=== PATIENT | female | born 1960 | race Caucasian/White ===

== ENCOUNTER 2020-07-19 08:34 | Outpatient (REF) | payer BC, SELFPAY ==
[2020-07-19 11:30] LABS: Estimated Average Glucose 180 mg/dL; Hemoglobin A1c % 7.9 %
[2020-07-19 11:59] LABS: Alanine Aminotransferase 32 U/L (0-31); Albumin Level 4.4 g/dL (3.5-5.0); Alkaline Phosphatase 78 U/L (39-117); Anion Gap 13 (12-20); Aspartate Amino Transferase 22 U/L (5-31); Bilirubin Total 0.9 mg/dL (0.0-1.0); Blood Urea Nitrogen 16 mg/dL (9-16); Carbon Dioxide 26 mmol/L (22-29); Chloride 103 mmol/L (96-108); Estimated Glomerular Filt Rate > 60; Glucose Random 173 mg/dL (60-115); Potassium 4.2 mmol/l (3.3-5.1); Sodium 138 mmol/L (135-145); Total Protein 6.7 g/dL (6.5-8.0)
[2020-07-19 12:30] LABS: Microalbumin Urine < 5.0 mg/L
== END 2020-07-19 08:35 | disposition home or self-care (01) ==
LOC: HO.HMGCLDS 08:34
PROVIDERS: PCP Internal Medicine; Visit Provider Internal Medicine
DX: E11.9 Type 2 diabetes mellitus without complications (principal); I10 Essential (primary) hypertension
CPT/HCPCS: 36415; 80053; 82043; 83036

== ENCOUNTER 2020-11-08 08:14 | Outpatient (REF) | payer BC, SELFPAY ==
[2020-11-08 11:32] LABS: MANUAL DIFF FLAG NO
[2020-11-08 11:48] LABS: Basophils Percent Auto 0.6 % (0-2); Eosinophils Absolute Auto 0.1 X10*3/uL (0.0-0.4); Eosinophils Percent Auto 2.7 % (0-4); Hematocrit 39.4 % (37-47); Hemoglobin 12.7 g/dl (12.0-16.0); Imm Gran Abs Auto 0.01 X10*3/uL (0.00-0.03); Imm Gran Pct Auto 0.2 % (0.0-0.4); Lymphocytes Absolute Auto 1.2 X10*3/uL (1.2-4.9); Lymphocytes Percent Auto 24.9 % (20-40); Mean Corpuscular HGB Conc 32.2 g/dl (31.0-35.0); Mean Corpuscular Hemoglobin 29.2 pg (27.0-33.0); Mean Corpuscular Volume 90.6 fL (80-98); Mean Platelet Volume 10.6 fL (9.4-12.3); Monocytes Absolute Auto 0.5 X10*3/uL (0.1-1.2); Monocytes Percent Auto 9.4 % (2-11); Neutrophils Percent Auto 62.2 % (45-73); Platelet Count 207 X10*3/uL (160-400); Red Blood Count 4.35 X10*6/uL (4.20-5.50); Red Cell Distribution Width 12.5 % (11.0-16.0); White Blood Count 4.8 X10*3/uL (4.8-10.8)
[2020-11-08 11:59] LABS: Glucose Urine UA NEG (NEG); Leukocyte Esterase Urine NEG (NEG); Nitrite Urine NEG (NEG); PH 5.5 (5.0-8.0); Specific Gravity - Urine 1.025 (1.005-1.025); Urine Blood NEG (NEG); Urine Ketones NEG (NEG); Urine Protein NEG (NEG-TRACE)
[2020-11-08 12:00] LABS: Estimated Average Glucose 154 mg/dL
[2020-11-08 12:07] LABS: Appearance Urine CLOUDY; Color Urine YELLOW
[2020-11-08 12:14] LABS: Alanine Aminotransferase 28 U/L (0-31); Albumin Level 4.2 g/dL (3.5-5.0); Alkaline Phosphatase 82 U/L (39-117); Anion Gap 11 (12-20); Aspartate Amino Transferase 18 U/L (5-31); Bilirubin Total 0.4 mg/dL (0.0-1.0); Blood Urea Nitrogen 16 mg/dL (9-16); Calcium 9.1 mg/dL (8.4-10.2); Carbon Dioxide 27 mmol/L (22-29); Chloride 108 mmol/L (96-108); Cholesterol 155 mg/dL; Estimated Glomerular Filt Rate > 60; Glucose Fasting 155 mg/dL (60-99); HDL Cholesterol 29 mg/dL; Potassium 3.9 mmol/L (3.3-5.1); Sodium 142 mmol/L (135-145); Total Protein 6.5 g/dL (6.5-8.0); Triglycerides 475 mg/dL
[2020-11-08 12:16] LABS: Creatinine Urine 141.96 mg/dL; Microalbum/Creatinine Ratio Ur 20.4 ug/mg cr
[2020-11-08 12:34] LABS: Vitamin D 25-OH Total 33.4 ng/mL (>30)
== END 2020-11-08 08:15 | disposition home or self-care (01) ==
LOC: HO.HMGCLDS 08:14
PROVIDERS: PCP Internal Medicine; Visit Provider Internal Medicine
DX: E11.9 Type 2 diabetes mellitus without complications (principal); E78.00 Pure hypercholesterolemia, unspecified; I10 Essential (primary) hypertension; E55.9 Vitamin D deficiency, unspecified
CPT/HCPCS: 36415; 80053; 80061; 81003; 82043; 82306; 83036; 85025

== ENCOUNTER 2021-02-08 08:26 | Outpatient (REF) | payer BC, SELFPAY ==
[2021-02-08 11:52] LABS: Estimated Average Glucose 171 mg/dL; Hemoglobin A1c % 7.6 %
[2021-02-08 12:08] LABS: Alanine Aminotransferase 26 U/L (0-31); Albumin Level 4.2 g/dL (3.5-5.0); Alkaline Phosphatase 64 U/L (39-117); Anion Gap 11 (12-20); Aspartate Amino Transferase 17 U/L (5-31); Bilirubin Total 0.5 mg/dL (0.0-1.0); Blood Urea Nitrogen 17 mg/dL (9-16); Calcium 9.3 mg/dL (8.4-10.2); Carbon Dioxide 28 mmol/L (22-29); Chloride 105 mmol/L (96-108); Cholesterol 151 mg/dL; Estimated Glomerular Filt Rate > 60; Glucose Fasting 171 mg/dL (60-99); HDL Cholesterol 34 mg/dL; LDL Cholesterol Calculated 88 mg/dl; Potassium 4.4 mmol/L (3.3-5.1); Sodium 140 mmol/L (135-145); Total Protein 6.4 g/dL (6.5-8.0); Triglycerides 148 mg/dL
== END 2021-02-08 08:27 | disposition home or self-care (01) ==
LOC: HO.HMGCLDS 08:26
PROVIDERS: PCP Internal Medicine; Visit Provider Internal Medicine
DX: E78.5 Hyperlipidemia, unspecified (principal); E11.9 Type 2 diabetes mellitus without complications
CPT/HCPCS: 36415; 80053; 80061; 83036

== ENCOUNTER 2021-06-04 08:00 | Outpatient (REF) | payer BC, SELFPAY ==
[2021-06-04 11:30] LABS: MANUAL DIFF FLAG NO
[2021-06-04 11:37] LABS: Basophils Percent Auto 0.6 % (0-2); Eosinophils Absolute Auto 0.2 X10*3/uL (0.0-0.4); Eosinophils Percent Auto 2.9 % (0-4); Hematocrit 38.3 % (37.0-47.0); Hemoglobin 12.3 g/dl (12.0-16.0); Imm Gran Abs Auto 0.02 X10*3/uL (0.00-0.03); Imm Gran Pct Auto 0.4 % (0.0-0.4); Lymphocytes Absolute Auto 1.3 X10*3/uL (1.2-4.9); Lymphocytes Percent Auto 26.3 % (20-40); Mean Corpuscular HGB Conc 32.1 g/dl (31.0-35.0); Mean Corpuscular Hemoglobin 28.5 pg (27.0-33.0); Mean Corpuscular Volume 88.9 fL (80.0-98.0); Mean Platelet Volume 10.6 fL (9.4-12.3); Monocytes Absolute Auto 0.5 X10*3/uL (0.1-1.2); Monocytes Percent Auto 9.2 % (2-11); Neutrophils Absolute Auto 3.1 x10*3/uL (2.0-8.3); Neutrophils Percent Auto 60.6 % (45-73); Platelet Count 234 X10*3/uL (160-400); Red Blood Count 4.31 X10*6/uL (4.20-5.50); Red Cell Distribution Width 12.2 % (11.0-16.0); White Blood Count 5.1 X10*3/uL (4.8-10.8)
[2021-06-04 12:03] LABS: Alanine Aminotransferase 24 U/L (0-31); Albumin Level 4.1 g/dL (3.5-5.0); Alkaline Phosphatase 68 U/L (39-117); Anion Gap 12 (12-20); Aspartate Amino Transferase 16 U/L (5-31); Bilirubin Total 0.4 mg/dL (0.0-1.0); Blood Urea Nitrogen 14 mg/dL (9-16); Carbon Dioxide 27 mmol/L (22-29); Chloride 105 mmol/L (96-108); Estimated Glomerular Filt Rate > 60; Glucose Random 160 mg/dL (60-115); Iron 54 mcg/dL (30-160); Percent Iron Saturation 15 % (15-50); Potassium 4.1 mmol/L (3.3-5.1); Sodium 140 mmol/L (135-145); Total Iron Binding Capacity 370 mcg/dL (228-428); Total Protein 6.4 g/dL (6.5-8.0); Unsaturated Iron Binding 316 ug/dL
[2021-06-04 12:11] LABS: Estimated Average Glucose 197 mg/dL; Hemoglobin A1c % 8.5 %
[2021-06-04 12:23] LABS: Microalbum/Creatinine Ratio Ur 9.9 ug/mg cr
== END 2021-06-04 08:01 | disposition home or self-care (01) ==
LOC: HO.HMGCLDS 08:00
PROVIDERS: PCP Internal Medicine; Visit Provider Internal Medicine
DX: E11.9 Type 2 diabetes mellitus without complications (principal); K21.9 Gastro-esophageal reflux disease without esophagitis; I10 Essential (primary) hypertension
CPT/HCPCS: 36415; 80053; 82043; 83036; 83540; 85025

== ENCOUNTER 2021-06-27 15:50 | Outpatient (REF) | payer BC, SELFPAY ==
[2021-06-27 16:08] LABS: COVID-19 Test Negative (Negative)
== END 2021-06-27 15:51 | disposition home or self-care (01) ==
LOC: HO.LNP 15:50
PROVIDERS: Visit Provider Internal Medicine
DX: Z20.822 Contact with and (suspected) exposure to COVID-19 (principal)
CPT/HCPCS: 87635

== ENCOUNTER 2021-07-02 14:01 | Outpatient (REF) | payer BC, SELFPAY ==
[2021-07-02 15:04] LABS: COVID-19 Test Negative (Negative)
== END 2021-07-02 14:02 | disposition home or self-care (01) ==
LOC: HO.LNP 14:01
PROVIDERS: Visit Provider Internal Medicine
DX: Z20.822 Contact with and (suspected) exposure to COVID-19 (principal)
CPT/HCPCS: 87635

== ENCOUNTER 2021-08-09 10:19 | Emergency (ER) | payer BC, SELFPAY ==
--- NOTE | ~2021-08-09 | CT_ITS ---
EXAMINATION: CT ABDOMEN AND PELVIS WITH CONTRAST CLINICAL INFORMATION: Left lower quadrant pain. History of diverticulitis. COMPARISON: 03/19/2012 TECHNIQUE: Multidetector volumetric images were obtained from the superior aspect of the liver through the pubic symphysis following administration 85 mL of Omnipaque 350 intravenous contrast. Sagittal and coronal reformatted images were obtained on the technologist's workstation. Oral contrast: No This CT examination was performed using dose optimization techniques as appropriate, variously including the following: *Automated exposure control *Adjustment of mA and/or kV according to patient size (this includes techniques or standardized protocols for targeted exams where dose is matched to indication/reason for exam; i.e. extremities or head) *Use of iterative reconstruction technique DLP: 855 mGy-cm FINDINGS: LUNG BASES: Minimal left basilar atelectasis. The visualized cardiac structures are unremarkable. LIVER, GALLBLADDER, AND BILIARY TREE: The liver is normal in size, shape, and attenuation. No biliary ductal dilatation is present. Within segment 3 of the liver there is a 0.8 cm hypoattenuating lesion which is too small to fully characterize. The gallbladder is unremarkable with no evidence of radiopaque gallstones, gallbladder wall thickening, or obvious pericholecystic inflammatory changes. PANCREAS: Unremarkable. SPLEEN: Unremarkable. ADRENAL GLANDS: Unremarkable. KIDNEYS AND URETERS: The kidneys are normal in size, shape, and attenuation. No hydronephrosis, hydroureter, or calculi seen. No perinephric stranding. BLADDER: Unremarkable. GASTROINTESTINAL TRACT: The stomach is unremarkable. Normal caliber small bowel. No obstruction. There is diffuse colonic diverticulosis. Focal wall thickening with inflammation of the fat at the proximal sigmoid colon, consistent with diverticulitis. No free air or fluid collection. Normal appendix. ABDOMINAL WALL: No significant hernia is appreciated. LYMPH NODES: Normal. VASCULAR: Normal caliber aorta with mild atherosclerotic calcification. PELVIC VISCERA: The uterus and adnexa are unremarkable. OSSEOUS STRUCTURES: No acute or suspicious osseous abnormality. CT/CT abdomen pelvis w con IMPRESSION: Sigmoid diverticulitis. No free air or fluid collection. Fleischner guidelines were followed.
[2021-08-09 10:30] VITALS: BP 151/69; PULSE 100; RESP 18; TEMP 36; O2SAT 96; BMI 32.5
--- NOTE | 2021-08-09 11:32 | ED.ABDPAIN ---
HPI - Abdominal Pain General Chief Complaint: Abdominal Pain Stated Complaint: ABD PAIN Time Seen by Provider: 08/09/21 11:22 Source: patient Mode of arrival: ambulatory Limitations: no limitations History of Present Illness HPI narrative: Patient comes to the emergency room complaining of left lower quadrant pain. Patient states it started yesterday. Patient has history of diverticulitis, states it feels about same. Patient denies vomiting, complaining of nausea, complaining of intermittent diarrhea and constipation. No rectal pain. No rectal bleeding. Patient denies fever chills. Patient states that she has noticed some discomfort urinating, seems more pressure than dysuria. Patient denies flank pain, no fever chills Related Data Previous Rx's Medication Instructions Recorded levofloxacin 500 mg tablet 500 mg PO DAILY #1 tab 08/09/21 levofloxacin 500 mg tablet 500 mg PO DAILY #9 tab 08/09/21 metronidazole 250 mg tablet 250 mg PO BID #19 tab 08/09/21 metronidazole 250 mg tablet 250 mg PO ONCE #1 tab 08/09/21 tramadol 50 mg tablet 50 mg PO BID PRN #7 tab 08/09/21 Allergies Allergy/AdvReac Type Severity Reaction Status Date / Time No Known Allergies Allergy Verified 08/09/21 10:33 Review of Systems Review of Systems Constitutional : No Weight loss, No Fever, No Chills, No Night Sweats, No Fatigue, No Malaise ENT/Mouth : No Hearing loss, No Ear Pain, No Nasal Congestion, No Sinus Pain, No Hoarseness, No sore throat, No Rhinorrhea, No Swallowing Difficulty Eyes: No Eye Pain, No Swelling, No Redness, No Foreign Body, No Discharge, No Vision Changes Cardiovascular : No Chest Pain, No SOB, No Dyspnea on Exertion, No Orthopnea, No Edema, No Palpitations Respiratory : No Cough, No Sputum, No Wheezing, No Smoke Exposure, No Dyspnea Gastrointestinal : Complaining of nausea, no vomiting, complaining intermittent diarrhea and constipation, complaining of left lower quadrant pain, No Hematochezia, No Melena Genitourinary : no irregular bleeding, complaining of bladder pressure/no dysuria, No Urinary Frequency, No Hematuria, No Urinary Incontinence, No Urgency, No Flank Pain, No Urinary Flow Changes, No Hesitancy Musculoskeletal : No joint pain, No Myalgias, No Joint Swelling Skin : No Skin Lesions, No rash Neuro : No Weakness, No Numbness, No Paresthesias, No Loss of Consciousness, No Dizziness, No Headache Psych : No Anxiety/Panic, No Depression, No SI/HI/AH/VH, No Social Issues, Heme/Lymph: No Bruising, No Bleeding,No Lymphadenopathy Endocrine : No Polyuria, No Polydipsia, No Temperature Intolerance [facility] Past Medical History Medical History Diabetes Diverticulitis HTN (hypertension) Social History Social History Advance Directives: Yes Advance Directives Information Provided: Yes Advance Directives on File: No Physical Exam ED Vital Signs: Vital Signs - 24 hr 08/09/21 10:30 08/09/21 14:40 Temperature 96.8 F 97.7 F Pulse Rate 100 70 Respiratory Rate 18 15 Blood Pressure 151/69 H 132/67 Pulse Oximetry 96 97 BMI result Body Mass Index 32.5 Const Other: Appearance: Alert. Oriented X3. No acute distress. Eyes: Pupils equal, round and reactive to light. ENT: Pharynx normal. Neck: Normal inspection. Neck supple. No lymph nodes noted. No crepitus CVS: Normal heart rate and rhythm. Pulses normal. Normal S1 and S2 Respiratory: No respiratory distress. Breath sounds normal. No Wheezing. No rales Abdomen: Soft , pain to palpation in bilateral lower quadrants, more so on the left lower quadrant Skin: Skin warm and dry. Normal skin color. Normal skin turgor. Extremities: No lower extremity edema. No Lacerations. No Rash Neuro: Oriented X 3. No motor deficit. No sensory deficit. Moving all extermities. No slurred speech. Course Course Course Narrative: Patient receiving IV fluids and pain medication labs and CT scan pending. Sepsis is not suspected. Patient overall feeling better. I discussed with the patient that she has diverticulitis. Patient received Levaquin and metronidazole. Discussed with the patient having her stay in the hospital versus going home. Patient states that she feels well enough to go home. Patient given clear instructions when to return to the emergency room. MDM - Abdominal Pain Lab Data Result diagrams: 08/09/21 11:37 08/09/21 12:15 Labs: Lab Results 08/09/21 08/09/21 08/09/21 Range/Units 11:37 11:37 11:37 WBC 8.0 (4.8-10.8) X10*3/uL RBC 4.37 (4.20-5.50) X10*6/uL Hgb 12.5 (12.0-16.0) g/dl Hct 38.2 (37.0-47.0) % MCV 87.4 (80.0-98.0) fL MCH 28.6 (27.0-33.0) pg MCHC 32.7 (31.0-35.0) g/dl RDW 12.4 (11.0-16.0) % Plt Count 211 (160-400) X10*3/uL MPV 10.7 (9.4-12.3) fL Immature Gran % (Auto) 0.3 (0.0-0.4) % Neut % (Auto) 68.6 (45-73) % Lymph % (Auto) 21.2 (20-40) % [place] % (Auto) 7.8 (2-11) % Eos % (Auto) 1.5 (0-4) % Baso % (Auto) 0.6 (0-2) % Lymph # (Auto) 1.7 (1.2-4.9) X10*3/uL [place] # (Auto) 0.6 (0.1-1.2) X10*3/uL Eos # (Auto) 0.1 (0.0-0.4) X10*3/uL Baso # (Auto) 0.1 (0.0-0.2) X10*3/uL Abs Immat Gran (auto) 0.02 (0.00-0.03) X10*3/uL Absolute Neuts (auto) 5.5 (2.0-8.3) x10*3/uL Absolute Nucleated RBC 0.000 (0.0-0.012) X10*3/uL Nucleated RBC % (auto) 0.0 (0.0-0.2) /100WBC Sodium (135-145) mmol/L Potassium (3.3-5.1) mmol/L Chloride (96-108) mmol/L Carbon Dioxide (22-29) mmol/L Anion Gap (12-20) BUN (9-16) mg/dL Creatinine (0.5-1.4) mg/dL Estim Creat Clear Calc Estimated GFR Random Glucose (60-115) mg/dL Lactic Acid 1.0 (0.5-2.0) mmol/L Calcium (8.4-10.2) mg/dL Total Bilirubin (0.0-1.0) mg/dL Direct Bilirubin (0.0-0.5) mg/dL AST (5-31) U/L ALT (0-31) U/L Alkaline Phosphatase (39-117) U/L Total Protein (6.5-8.0) g/dL Albumin (3.5-5.0) g/dL Lipase (8-78) U/L Urine Color YELLOW Urine Appearance CLEAR Urine pH 6.0 (5.0-8.0) Ur Specific [place] 1.010 (1.005-1.025) Urine Protein NEG (NEG-TRACE) MG/DL Urine Glucose (UA) >=1000 H (NEG) MG/DL Urine Ketones NEG (NEG) MG/DL Urine Blood NEG (NEG) Urine Nitrite NEG (NEG) Ur Leukocyte Esterase NEG (NEG) Urine RBC 0-2 (0) /HPF Urine WBC 1-4 (0-4) /HPF Ur Squamous Epith Cells 2+ /LPF Urine Bacteria NONE /LPF 08/09/21 Range/Units 12:15 WBC (4.8-10.8) X10*3/uL RBC (4.20-5.50) X10*6/uL Hgb (12.0-16.0) g/dl Hct (37.0-47.0) % MCV (80.0-98.0) fL MCH (27.0-33.0) pg MCHC (31.0-35.0) g/dl RDW (11.0-16.0) % Plt Count (160-400) X10*3/uL MPV (9.4-12.3) fL Immature Gran % (Auto) (0.0-0.4) % Neut % (Auto) (45-73) % Lymph % (Auto) (20-40) % [place] % (Auto) (2-11) % Eos % (Auto) (0-4) % Baso % (Auto) (0-2) % Lymph # (Auto) (1.2-4.9) X10*3/uL [place] # (Auto) (0.1-1.2) X10*3/uL Eos # (Auto) (0.0-0.4) X10*3/uL Baso # (Auto) (0.0-0.2) X10*3/uL Abs Immat Gran (auto) (0.00-0.03) X10*3/uL Absolute Neuts (auto) (2.0-8.3) x10*3/uL Absolute Nucleated RBC (0.0-0.012) X10*3/uL Nucleated RBC % (auto) (0.0-0.2) /100WBC Sodium 138 (135-145) mmol/L Potassium 4.0 (3.3-5.1) mmol/L Chloride 107 (96-108) mmol/L Carbon Dioxide 25 (22-29) mmol/L Anion Gap 10 L (12-20) BUN 10 (9-16) mg/dL Creatinine 0.66 (0.5-1.4) mg/dL Estim Creat Clear Calc 92.7 Estimated GFR > 60 Random Glucose 183 H (60-115) mg/dL Lactic Acid (0.5-2.0) mmol/L Calcium 8.6 (8.4-10.2) mg/dL Total Bilirubin 0.6 (0.0-1.0) mg/dL Direct Bilirubin 0.2 (0.0-0.5) mg/dL AST 12 (5-31) U/L ALT 17 (0-31) U/L Alkaline Phosphatase 64 (39-117) U/L Total Protein 5.9 L (6.5-8.0) g/dL Albumin 3.7 (3.5-5.0) g/dL Lipase 15 (8-78) U/L Urine Color Urine Appearance Urine pH (5.0-8.0) Ur Specific [place] (1.005-1.025) Urine Protein (NEG-TRACE) MG/DL Urine Glucose (UA) (NEG) MG/DL Urine Ketones (NEG) MG/DL Urine Blood (NEG) Urine Nitrite (NEG) Ur Leukocyte Esterase (NEG) Urine RBC (0) /HPF Urine WBC (0-4) /HPF Ur Squamous Epith Cells /LPF Urine Bacteria /LPF Imaging Data CT scan - abdomen: Radiologist's impression: FINDINGS: LUNG BASES: Minimal left basilar atelectasis. The visualized cardiac structures are unremarkable.? LIVER, GALLBLADDER, AND BILIARY TREE: The liver is normal in size, shape, and attenuation. No biliary ductal dilatation is present. Within segment 3 of the liver there is a 0.8 cm hypoattenuating lesion which is too small to fully characterize. The gallbladder is unremarkable with no evidence of radiopaque gallstones, gallbladder wall thickening, or obvious pericholecystic inflammatory changes.? PANCREAS: Unremarkable.? SPLEEN: Unremarkable.? ADRENAL GLANDS: Unremarkable.? KIDNEYS AND URETERS: The kidneys are normal in size, shape, and attenuation. No hydronephrosis, hydroureter, or calculi seen. No perinephric stranding. ? BLADDER: Unremarkable.? GASTROINTESTINAL TRACT: The stomach is unremarkable. Normal caliber small bowel. No obstruction. There is diffuse colonic diverticulosis. Focal wall thickening with inflammation of the fat at the proximal sigmoid colon, consistent with diverticulitis. No free air or fluid collection. Normal appendix.? ABDOMINAL WALL: No significant hernia is appreciated.? LYMPH NODES: Normal. VASCULAR: Normal caliber aorta with mild atherosclerotic calcification. PELVIC VISCERA: The uterus and adnexa are unremarkable.? OSSEOUS STRUCTURES: No acute or suspicious osseous abnormality.? CT/CT abdomen pelvis w con IMPRESSION: Sigmoid diverticulitis. No free air or fluid collection.? Discharge Plan Discharge Clinical Impression: Diverticulitis Patient Disposition: Home, Self-Care Instructions: Diverticulitis (ED), Diverticulitis Diet (ED) Additional Instructions: If you have any worsening symptoms, or if the symptoms are not improving, please return to emergency room. Please follow-up with your primary care physician tomorrow. If you have any worsening or new symptoms, please return to the emergency room or call 911 Prescriptions: New levofloxacin 500 mg tablet 500 mg PO DAILY Qty: 9 0RF Rx Instructions: Start 08/10/2021 metronidazole 250 mg tablet 250 mg PO BID Qty: 0RF Rx Instructions: Started 08/10/2021 tramadol 50 mg tablet 50 mg PO BID PRN (Reason: pain) Qty: 7 0RF levofloxacin 500 mg tablet 500 mg PO DAILY Qty: 1 0RF Rx Instructions: to be taken today metronidazole 250 mg tablet 250 mg PO ONCE Qty: 1 0RF Rx Instructions: to be taken today Interventions: ED Discharge Assessment Last Done: 08/09/21 14:45 Discharge Date/Time: 08/09/21 14:45
[2021-08-09 11:55] LABS: MANUAL DIFF FLAG NO
[2021-08-09] MEDS: ondansetron HCL 4 MG/2 ML VIAL IVPUSH (11:55)
[2021-08-09] MEDS: Morphine Sulfate 4 MG/ML CARTRIDGE IVPUSH (11:56)
[2021-08-09 11:57] LABS: Basophils Absolute Auto 0.1 X10*3/uL (0.0-0.2); Basophils Percent Auto 0.6 % (0-2); Eosinophils Absolute Auto 0.1 X10*3/uL (0.0-0.4); Eosinophils Percent Auto 1.5 % (0-4); Hematocrit 38.2 % (37.0-47.0); Hemoglobin 12.5 g/dl (12.0-16.0); Imm Gran Abs Auto 0.02 X10*3/uL (0.00-0.03); Imm Gran Pct Auto 0.3 % (0.0-0.4); Lymphocytes Absolute Auto 1.7 X10*3/uL (1.2-4.9); Lymphocytes Percent Auto 21.2 % (20-40); Mean Corpuscular HGB Conc 32.7 g/dl (31.0-35.0); Mean Corpuscular Hemoglobin 28.6 pg (27.0-33.0); Mean Corpuscular Volume 87.4 fL (80.0-98.0); Mean Platelet Volume 10.7 fL (9.4-12.3); Monocytes Absolute Auto 0.6 X10*3/uL (0.1-1.2); Monocytes Percent Auto 7.8 % (2-11); Neutrophils Absolute Auto 5.5 x10*3/uL (2.0-8.3); Neutrophils Percent Auto 68.6 % (45-73); Platelet Count 211 X10*3/uL (160-400); Red Blood Count 4.37 X10*6/uL (4.20-5.50); Red Cell Distribution Width 12.4 % (11.0-16.0)
[2021-08-09 11:58] LABS: Appearance Urine CLEAR; Color Urine YELLOW; Glucose Urine UA >=1000 MG/DL (NEG); Leukocyte Esterase Urine NEG (NEG); Nitrite Urine NEG (NEG); Urine Blood NEG (NEG); Urine Ketones NEG (NEG); Urine Protein NEG (NEG-TRACE)
[2021-08-09] MEDS: 0.9 % Sodium Chloride 1,000 ML 999 ML IVCONT (11:58)
[2021-08-09 12:28] LABS: RBC Urine 0-2 /HPF (0); Squamous Epithelial Cell Urine 2+ /LPF
[2021-08-09 12:49] LABS: Alanine Aminotransferase 17 U/L (0-31); Albumin Level 3.7 g/dL (3.5-5.0); Alkaline Phosphatase 64 U/L (39-117); Anion Gap 10 (12-20); Aspartate Amino Transferase 12 U/L (5-31); Bilirubin Direct 0.2 mg/dL (0.0-0.5); Bilirubin Total 0.6 mg/dL (0.0-1.0); Blood Urea Nitrogen 10 mg/dL (9-16); Calcium 8.6 mg/dL (8.4-10.2); Carbon Dioxide 25 mmol/L (22-29); Chloride 107 mmol/L (96-108); Creatinine Clr Calc Pharmacy 92.7; Estimated Glomerular Filt Rate > 60; Glucose Random 183 mg/dL (60-115); Lipase 15 U/L (8-78); Sodium 138 mmol/L (135-145); Total Protein 5.9 g/dL (6.5-8.0)
[2021-08-09] MEDS: iohexoL 350 MG/ML 100 ML INFUS..BTL IV (13:14)
[2021-08-09 14:40] VITALS: BP 132/67; PULSE 70; RESP 15; TEMP 36.5; O2SAT 97
== END 2021-08-09 14:45 | disposition home or self-care (01) ==
PROVIDERS: Emergency Provider Emergency Medicine; PCP Internal Medicine
DX: K57.32 Diverticulitis of large intestine without perforation or abscess without bleeding (principal); E11.9 Type 2 diabetes mellitus without complications; I10 Essential (primary) hypertension
CPT/HCPCS: 36415; 74177; 80048; 80076; 81001; 81003; 83605; 83690; 85025; 87040; 96361; 96374; 96375; 99283; 99284; J2270; J2405; Q9967

== ENCOUNTER 2021-09-17 07:00 | Outpatient (REF) | payer BC, SELFPAY ==
[2021-09-17 12:04] LABS: Alanine Aminotransferase 27 U/L (0-31); Albumin Level 4.3 g/dL (3.5-5.0); Alkaline Phosphatase 63 U/L (39-117); Anion Gap 13 (12-20); Aspartate Amino Transferase 21 U/L (5-31); Bilirubin Total 0.7 mg/dL (0.0-1.0); Blood Urea Nitrogen 15 mg/dL (9-16); Calcium 9.4 mg/dL (8.4-10.2); Carbon Dioxide 27 mmol/L (22-29); Chloride 103 mmol/L (96-108); Estimated Glomerular Filt Rate > 60; Glucose Random 164 mg/dL (60-115); Sodium 139 mmol/L (135-145); Total Protein 6.8 g/dL (6.5-8.0)
[2021-09-17 12:13] LABS: Estimated Average Glucose 189 mg/dL; Hemoglobin A1c % 8.2 %
[2021-09-17 12:19] LABS: Creatinine Urine 145.39 mg/dL; Microalbum/Creatinine Ratio Ur 8.9 ug/mg cr
== END 2021-09-17 07:01 | disposition home or self-care (01) ==
LOC: HO.HMGCLDS 07:00
PROVIDERS: Visit Provider Internal Medicine
DX: I10 Essential (primary) hypertension (principal); E11.9 Type 2 diabetes mellitus without complications
CPT/HCPCS: 36415; 80053; 82043; 83036

== ENCOUNTER 2021-11-04 13:36 | Outpatient (REF) | payer BC, SELFPAY ==
[2021-11-04 15:19] LABS: Anion Gap 13 (12-20); Blood Urea Nitrogen 12 mg/dL (9-16); C Reactive Protein 1.96 mg/dL (< or = 0.50); Calcium 9.8 mg/dL (8.4-10.2); Carbon Dioxide 30 mmol/L (22-29); Chloride 102 mmol/L (96-108); Estimated Glomerular Filt Rate > 60; Glucose Random 158 mg/dL (60-115); Potassium 4.2 mmol/L (3.3-5.1); Sodium 141 mmol/L (135-145)
[2021-11-04 15:24] LABS: Amylase 110 U/L (28-100)
[2021-11-08 12:30] LABS: Lyme Abs Screen <0.90 index
== END 2021-11-04 13:37 | disposition home or self-care (01) ==
LOC: HO.LAB 13:36
PROVIDERS: PCP Internal Medicine; Visit Provider Internal Medicine
DX: I10 Essential (primary) hypertension (principal); E11.9 Type 2 diabetes mellitus without complications; R59.9 Enlarged lymph nodes, unspecified
CPT/HCPCS: 36415; 80048; 82150; 86140; 86617; 86618

== ENCOUNTER 2021-11-05 14:12 | Outpatient (REF) | payer BC, SELFPAY ==
[2021-11-05 16:30] LABS: MANUAL DIFF FLAG NO
[2021-11-05 16:42] LABS: Basophils Percent Auto 0.4 % (0-2); Eosinophils Absolute Auto 0.1 X10*3/uL (0.0-0.4); Eosinophils Percent Auto 1.8 % (0-4); Hematocrit 39.6 % (37.0-47.0); Hemoglobin 13.2 g/dl (12.0-16.0); Imm Gran Abs Auto 0.02 X10*3/uL (0.00-0.03); Imm Gran Pct Auto 0.4 % (0.0-0.4); Lymphocytes Absolute Auto 1.1 X10*3/uL (1.2-4.9); Lymphocytes Percent Auto 18.8 % (20-40); Mean Corpuscular HGB Conc 33.3 g/dl (31.0-35.0); Mean Corpuscular Hemoglobin 29.7 pg (27.0-33.0); Mean Platelet Volume 10.2 fL (9.4-12.3); Monocytes Absolute Auto 0.3 X10*3/uL (0.1-1.2); Monocytes Percent Auto 4.9 % (2-11); Neutrophils Absolute Auto 4.2 x10*3/uL (2.0-8.3); Neutrophils Percent Auto 73.7 % (45-73); Platelet Count 246 X10*3/uL (160-400); Red Blood Count 4.45 X10*6/uL (4.20-5.50); Red Cell Distribution Width 12.3 % (11.0-16.0); White Blood Count 5.7 X10*3/uL (4.8-10.8)
[2021-11-05 16:48] LABS: Blood Urea Nitrogen 12 mg/dL (9-16)
[2021-11-07 06:04] LABS: Mumps Virus IgG Antibody >300.00 AU/mL
== END 2021-11-05 14:13 | disposition home or self-care (01) ==
LOC: HO.HMGCLDS 14:12
PROVIDERS: Visit Provider Internal Medicine
DX: R22.1 Localized swelling, mass and lump, neck (principal)
CPT/HCPCS: 36415; 84520; 85025; 86735

== ENCOUNTER 2021-11-08 15:09 | Outpatient (REF) | payer BC, SELFPAY ==
--- NOTE | ~2021-11-08 | CT_ITS ---
EXAMINATION: CT SOFT TISSUE NECK WITHOUT CONTRAST CLINICAL INFORMATION: Left-sided neck swelling. COMPARISON: No similar pertinent priors. TECHNIQUE: Helical imaging was performed in the axial plane with generation of coronal and sagittal reformatted images. This CT examination was performed using dose optimization techniques as appropriate, variously including the following: *Automated exposure control *Adjustment of mA and/or kV according to patient size (this includes techniques or standardized protocols for targeted exams where dose is matched to indication/reason for exam; i.e. extremities or head) *Use of iterative reconstruction technique DLP: 302 mGy-cm FINDINGS: No cervical adenopathy is identified. The parotid glands are homogeneous in attenuation. The submandibular glands are normal. No contour abnormality is seen within the oral cavity or pharyngeal mucosal space. The laryngeal structures are normal. The parapharyngeal fat is preserved. No extra mucosal soft tissue mass or fluid collection is seen. No retropharyngeal fluid collection is seen. There is a 0.8 cm thyroid nodule in the left lobe of the thyroid for which no imaging follow-up is recommended. The superior mediastinum is unremarkable. There is mild paraseptal emphysema. The mastoid air cells and visualized portions of the paranasal sinuses are well-aerated. The temporomandibular joints are normal. No periapical disease is identified. No osseous abnormalities are seen. The imaged portions of the brain parenchyma are unremarkable. CT/CT soft tissue neck wo con IMPRESSION: No significant abnormality.
== END 2021-11-08 15:10 | disposition home or self-care (01) ==
LOC: HO.CT 15:09
PROVIDERS: PCP Internal Medicine; Visit Provider Internal Medicine
DX: R22.1 Localized swelling, mass and lump, neck (principal)
CPT/HCPCS: 70490

== ENCOUNTER 2022-01-14 08:01 | Outpatient (REF) | payer BC, SELFPAY ==
[2022-01-14 11:35] LABS: MANUAL DIFF FLAG NO
[2022-01-14 11:45] LABS: Basophils Percent Auto 0.5 % (0-2); Eosinophils Absolute Auto 0.1 X10*3/uL (0.0-0.4); Eosinophils Percent Auto 2.3 % (0-4); Hematocrit 40.8 % (37.0-47.0); Hemoglobin 13.2 g/dl (12.0-16.0); Imm Gran Abs Auto 0.02 X10*3/uL (0.00-0.03); Imm Gran Pct Auto 0.4 % (0.0-0.4); Lymphocytes Absolute Auto 1.2 X10*3/uL (1.2-4.9); Lymphocytes Percent Auto 20.9 % (20-40); Mean Corpuscular HGB Conc 32.4 g/dl (31.0-35.0); Mean Corpuscular Hemoglobin 29.1 pg (27.0-33.0); Mean Corpuscular Volume 90.1 fL (80.0-98.0); Mean Platelet Volume 10.7 fL (9.4-12.3); Monocytes Absolute Auto 0.5 X10*3/uL (0.1-1.2); Monocytes Percent Auto 9.1 % (2-11); Neutrophils Absolute Auto 3.7 x10*3/uL (2.0-8.3); Neutrophils Percent Auto 66.8 % (45-73); Platelet Count 215 X10*3/uL (160-400); Red Blood Count 4.53 X10*6/uL (4.20-5.50); Red Cell Distribution Width 13.1 % (11.0-16.0); White Blood Count 5.6 X10*3/uL (4.8-10.8)
[2022-01-14 12:00] LABS: Estimated Average Glucose 174 mg/dL; Hemoglobin A1c % 7.7 %
[2022-01-14 12:19] LABS: Alanine Aminotransferase 33 U/L (0-31); Albumin Level 4.2 g/dL (3.5-5.0); Alkaline Phosphatase 79 U/L (39-117); Anion Gap 12 (12-20); Aspartate Amino Transferase 21 U/L (5-31); Bilirubin Total 0.5 mg/dL (0.0-1.0); Blood Urea Nitrogen 18 mg/dL (9-16); Calcium 8.6 mg/dL (8.4-10.2); Carbon Dioxide 27 mmol/L (22-29); Chloride 107 mmol/L (96-108); Cholesterol 161 mg/dL; Estimated Glomerular Filt Rate > 60; Glucose Random 200 mg/dL (60-115); HDL Cholesterol 34 mg/dL; LDL Cholesterol Calculated 78 mg/dl; Potassium 4.7 mmol/L (3.3-5.1); Sodium 141 mmol/L (135-145); Total Protein 6.6 g/dL (6.5-8.0); Triglycerides 245 mg/dL
[2022-01-14 12:42] LABS: Creatinine Urine 145.08 mg/dL; Microalbum/Creatinine Ratio Ur 8.2 ug/mg cr
== END 2022-01-14 08:02 | disposition home or self-care (01) ==
LOC: HO.HMGCLDS 08:01
PROVIDERS: PCP Internal Medicine; Visit Provider Internal Medicine
DX: Z00.00 Encounter for general adult medical examination without abnormal findings (principal); E11.9 Type 2 diabetes mellitus without complications
CPT/HCPCS: 36415; 80053; 80061; 82043; 83036; 85025

== ENCOUNTER 2022-01-17 07:41 | Day surgery (SDC) | payer BC, SELFPAY ==
[2022-01-10 14:06] VITALS: BMI 31.9
--- NOTE | 2022-01-16 08:29 | P.CONAN_ITS ---
Documented by User: Tessy Crespo NP 01/16/22 08:30 HPI - Anesthesia Eval Consult details Narrative: 61yo F for Colonoscopy [facility] Past Medical History Medical History (Updated 01/10/22 @ 13:54 by Katlyn Bejarano, RN) Anxiety Diabetes Diverticulitis GERD (gastroesophageal reflux disease) Hiatal hernia HTN (hypertension) Restless leg syndrome Surgical History Surgical History (Updated 01/10/22 @ 13:54 by Katlyn Bejarano, RN) History of esophagogastroduodenoscopy (EGD) Hx of colonoscopy Social History Social History Are you a primary client care specialist to a significant other at home: No Do you presently have visiting nurse or other home services: No Patient Tobacco Use Status: Former Tobacco user Have you been hit, kicked, punched, or otherwise hurt by someone within the past year? If so, by whom?: No Are you DNR?: No Advance Directives: No Advance Directives Information Provided: Yes Advance Directives on File: No Recently lost weight without trying: No Nutrition Risks: No Nutritional Risk Meds Allergies Allergy/AdvReac Type Severity Reaction Status Date / Time No Known Allergies Allergy Verified 08/09/21 10:33 Home Medications Medication Instructions Recorded Confirmed Last Taken Type atorvastatin 10 mg tablet 1 tab PO DAILY 01/10/22 01/10/22 Unknown History escitalopram oxalate 10 mg tablet 1 tab PO DAILY 01/10/22 01/10/22 Unknown History insulin glargine 100 unit/mL (3 46 ea subcut BEDTIME 01/10/22 01/10/22 Unknown History mL) subcutaneous pen (Basaglar KwikPen U-100 Insulin) losartan 50 mg tablet 1 tab PO DAILY 01/10/22 01/10/22 Unknown History omeprazole 20 mg capsule,delayed 1 cap PO DAILY 01/10/22 01/10/22 Unknown History release ropinirole 1 mg tablet tab PO 01/10/22 Unknown History Exam Exam Date and Time: January 16, [id number] Height,Weight and Vital Signs: Height 5 ft 5 in Weight 87.09 kg Pertinent Lab Results Pertinent Lab Results: Laboratory Tests 01/14/22 01/14/22 08:07 08:07 WBC 5.6 Hgb 13.2 Hct 40.8 Plt Count 215 Sodium 141 Potassium 4.7 Chloride 107 Carbon Dioxide 27 BUN 18 H Creatinine 0.75 Assessment and Plan Assessment Anesthesia Assessment: Chart Reviewed Documented by User: Fabian Samaniego MD 01/17/22 12:30 [facility] Past Medical History Medical History (Updated 01/10/22 @ 13:54 by Katlyn Bejarano, RN) Anxiety Diabetes Diverticulitis GERD (gastroesophageal reflux disease) Hiatal hernia HTN (hypertension) Restless leg syndrome Family History Family history of problems with anesthesia: No Surgical History Surgical History (Updated 01/10/22 @ 13:54 by Katlyn Bejarano, RN) History of esophagogastroduodenoscopy (EGD) Hx of colonoscopy History of Problems with Anesthesia: No Social History Social History Are you a primary client care specialist to a significant other at home: No Do you presently have visiting nurse or other home services: No Patient Tobacco Use Status: Former Tobacco user Have you been hit, kicked, punched, or otherwise hurt by someone within the past year? If so, by whom?: No Are you DNR?: No Advance Directives: No Advance Directives Information Provided: Yes Advance Directives on File: No Recently lost weight without trying: No Nutrition Risks: No Nutritional Risk Meds Allergies Allergy/AdvReac Type Severity Reaction Status Date / Time No Known Allergies Allergy Verified 08/09/21 10:33 Home Medications Medication Instructions Recorded Confirmed Last Taken Type atorvastatin 10 mg tablet 1 tab PO DAILY 01/10/22 01/10/22 Unknown History escitalopram oxalate 10 mg tablet 1 tab PO DAILY 01/10/22 01/10/22 Unknown History insulin glargine 100 unit/mL (3 46 ea subcut BEDTIME 01/10/22 01/10/22 Unknown History mL) subcutaneous pen (Basaglar KwikPen U-100 Insulin) losartan 50 mg tablet 1 tab PO DAILY 01/10/22 01/10/22 Unknown History omeprazole 20 mg capsule,delayed 1 cap PO DAILY 01/10/22 01/10/22 Unknown History release ropinirole 1 mg tablet tab PO 01/10/22 Unknown History Exam Airway Mallampati Class: III TM Dist: >3cm Neck ROM: Full Loose/Missing/Broken Teeth: Yes (Poor dentition , missing teeth , fillings ) Heart: S1,S2 Lungs: b/l breath sounds Assessment and Plan Assessment Anesthesia Assessment: Anesthesia Plan Discussed Final Anesthetic Review Family History of Problems with Anesthesia: No History of Problems with Anesthesia: No NPO: Yes ASA Class: II Final Preanesthetic Review: Meds/Allgs Chart Reviewed, Consent Obtained/Reviewed and Anes Risks/Benef Reviewed Patient Risk: Intermediate Procedure Risk: Intermediate Anesthetic Plan Anesthetic Plan: MAC: Disposition: Standard PACU
[2022-01-17] MEDS: Lactated Ringers 1,000 ML 100 ML IVCONT (08:04)
[2022-01-17 08:07] LABS: Glucose, Whole Blood 142 mg/dL (60-115)
[2022-01-17 09:00] LABS: Glucose, Whole Blood 123 mg/dL (60-115)
--- NOTE | 2022-01-17 09:00 | PC.NURSE ---
pt verbalized to dr. yi that she was nervous that her sugar would drop bc of no eating. repeat blood sugar checked at this time and was 123. pt asymptomatic, just nervous.
[2022-01-17 09:52] VITALS: BP 100/60; PULSE 76; RESP 16; TEMP 36.2; O2SAT 98
--- NOTE | 2022-01-17 09:55 | P.BOP_ITS ---
Brief Operative Note Date of Service: 01/17/22 Pre-op diagnosis: Screening Post-op diagnosis: other (Diverticulosis) Procedure: Colonoscopy to the cecum and TI Surgeon: Juan Carlos Cutler Anesthesia: MAC Was an Hand Clerical Verifier used for this Procedure?: No Estimated blood loss (mL): 0 Pathology: none sent Condition: stable Disposition: PACU
[2022-01-17 10:07] VITALS: BP 110/65; PULSE 71; RESP 16; O2SAT 98
[2022-01-17 10:23] VITALS: BP 120/63; PULSE 68; RESP 16; O2SAT 95
--- NOTE | 2022-01-17 21:13 | OP_ITS ---
SURGEON: Juan Carlos Cutler MD INDICATIONS: The patient presents for evaluation of colorectal cancer screening and family history of colon cancer. Full consent obtained from her for this, including risks of bleeding and perforation. PREOPERATIVE DIAGNOSIS: Colorectal cancer screening and family history of colon cancer. POSTOPERATIVE DIAGNOSIS: PROCEDURE PERFORMED: Colonoscopy to the cecum and terminal ileum. ESTIMATED BLOOD LOSS: COMPLICATIONS: ANESTHESIA: Monitored anesthesia care. ASSISTANTS: SPECIMENS: POSTOPERATIVE DIAGNOSES: Colorectal cancer screening and family history of colon cancer, diverticulosis, internal hemorrhoids. DESCRIPTION OF PROCEDURE: The patient was placed in the left lateral decubitus position. The digital rectal exam revealed no abnormalities. The Olympus video pediatric colonoscope was entered into the rectum and advanced easily to the cecum. Once in the cecum, I did identify a normal-appearing cecal pouch with appendiceal orifice and a normal-appearing ileocecal valve. The terminal ileum was cannulated and appeared normal. The scope was withdrawn back in the colon. The entire cecum and ileocecal valve appeared normal. The scope was then slowly withdrawn assessing all mucosal surfaces carefully. For the most part preparation was excellent, although there were some areas of liquid stool in the sigmoid and descending colon, which were irrigated and suctioned away as best as possible. She had a relatively diffuse diverticulosis in the ascending colon, transverse colon, descending colon, and sigmoid colon. In the descending and sigmoid colon, there were some initially small, less than 10 mm questionable polyps, but with insufflation of air and by probing them with a closed biopsy forceps, these seemed to be quite consistent with some portions of everted diverticulae. Therefore, biopsies were not obtained nor were they removed. I did not visualize any polyps, colitis, nor angiodysplasia. In the rectum, the scope was retroflexed visualizing internal hemorrhoids, but no other pathology. The rectal mucosa appeared normal. Scope was straightened and withdrawn from the patient. She tolerated the procedure well and was returned to the recovery area in stable condition. IMPRESSION: 1. Diverticulosis. 2. Internal hemorrhoids. PLAN: Given her family history, I would recommend a followup colonoscopy in 5 years. She will otherwise see me on a p.r.n. basis. MD BREE Ogden/SURI / [id number] BRENDA
== END 2022-01-17 10:55 | disposition home or self-care (01) ==
PROVIDERS: PCP Internal Medicine; Visit Provider Internal Medicine
PROC: 0DJD8ZZ Inspection of Lower Intestinal Tract, Via Natural or Artificial Opening Endoscopic (ICD-10-PCS; CPT 45378; principal; 2022-01-17 09:30)
DX: Z12.11 Encounter for screening for malignant neoplasm of colon (principal); Z80.0 Family history of malignant neoplasm of digestive organs; K57.30 Diverticulosis of large intestine without perforation or abscess without bleeding; K64.8 Other hemorrhoids; K21.9 Gastro-esophageal reflux disease without esophagitis; I10 Essential (primary) hypertension; E11.9 Type 2 diabetes mellitus without complications; Z79.4 Long term (current) use of insulin; Z79.899 Other long term (current) drug therapy; Z87.891 Personal history of nicotine dependence
CPT/HCPCS: 45378; 82947

== ENCOUNTER 2022-03-11 09:21 | Outpatient (REF) | payer BC, SELFPAY ==
[2022-03-11 10:12] LABS: Influenza A PCR NEGATIVE (Negative); Influenza B PCR NEGATIVE (Negative); Resp Syncy Virus RNA Qual PCR NEGATIVE (Negative); SARS COV2 PCR INHOUSE NEGATIVE (Negative)
== END 2022-03-11 09:22 | disposition home or self-care (01) ==
LOC: HO.LNP 09:21
PROVIDERS: Visit Provider Internal Medicine
DX: R51.9 Headache, unspecified (principal); R06.02 Shortness of breath; R50.9 Fever, unspecified; Z20.822 Contact with and (suspected) exposure to COVID-19
CPT/HCPCS: 0241U

== ENCOUNTER 2022-04-29 08:00 | Outpatient (REF) | payer BC, SELFPAY ==
[2022-04-29 12:13] LABS: Anion Gap 15 (12-20); Blood Urea Nitrogen 12 mg/dL (9-16); Calcium 9.2 mg/dL (8.4-10.2); Carbon Dioxide 22 mmol/L (22-29); Chloride 104 mmol/L (96-108); Estimated Glomerular Filt Rate > 60; Glucose Random 196 mg/dL (60-115); Potassium 4.1 mmol/L (3.3-5.1); Sodium 137 mmol/L (135-145)
[2022-04-29 12:32] LABS: Estimated Average Glucose 212 mg/dL
== END 2022-04-29 08:01 | disposition home or self-care (01) ==
LOC: HO.HMGCLDS 08:00
PROVIDERS: PCP Internal Medicine; Visit Provider Internal Medicine
DX: I10 Essential (primary) hypertension (principal); E11.9 Type 2 diabetes mellitus without complications
CPT/HCPCS: 36415; 80048; 83036

== ENCOUNTER 2022-09-19 07:48 | Outpatient (REF) | payer BC, SELFPAY ==
[2022-09-19 12:22] LABS: Estimated Average Glucose 192 mg/dL; Hemoglobin A1c % 8.3 %
[2022-09-19 12:59] LABS: Anion Gap 11 (12-20); Blood Urea Nitrogen 14 mg/dL (9-16); Calcium 8.8 mg/dL (8.4-10.2); Carbon Dioxide 27 mmol/L (22-29); Chloride 107 mmol/L (96-108); Estimated Glomerular Filt Rate > 60; Glucose Random 157 mg/dL (60-115); Potassium 3.9 mmol/L (3.3-5.1); Sodium 141 mmol/L (135-145)
== END 2022-09-19 07:49 | disposition home or self-care (01) ==
LOC: HO.HMGCLDS 07:48
PROVIDERS: PCP Internal Medicine; Visit Provider Internal Medicine
DX: E11.9 Type 2 diabetes mellitus without complications (principal)
CPT/HCPCS: 36415; 80048; 83036

== ENCOUNTER 2022-12-11 08:39 | Outpatient (REF) | payer BC, SELFPAY ==
[2022-12-11 11:11] LABS: MANUAL DIFF FLAG NO
[2022-12-11 11:28] LABS: Estimated Average Glucose 166 mg/dL; Hemoglobin A1c % 7.4 %
[2022-12-11 11:31] LABS: Basophils Percent Auto 0.8 % (0-2); Eosinophils Absolute Auto 0.1 X10*3/uL (0.0-0.4); Eosinophils Percent Auto 2.5 % (0-4); Hematocrit 39.9 % (37.0-47.0); Hemoglobin 12.8 g/dl (12.0-16.0); Imm Gran Abs Auto 0.02 X10*3/uL (0.00-0.03); Imm Gran Pct Auto 0.4 % (0.0-0.4); Lymphocytes Absolute Auto 1.2 X10*3/uL (1.2-4.9); Lymphocytes Percent Auto 24.7 % (20-40); Mean Corpuscular HGB Conc 32.1 g/dl (31.0-35.0); Mean Corpuscular Hemoglobin 29.1 pg (27.0-33.0); Mean Corpuscular Volume 90.7 fL (80.0-98.0); Mean Platelet Volume 10.9 fL (9.4-12.3); Monocytes Absolute Auto 0.4 X10*3/uL (0.1-1.2); Monocytes Percent Auto 8.8 % (2-11); Neutrophils Percent Auto 62.8 % (45-73); Platelet Count 204 X10*3/uL (160-400); Red Cell Distribution Width 12.8 % (11.0-16.0); White Blood Count 4.8 X10*3/uL (4.8-10.8)
[2022-12-11 12:01] LABS: Alanine Aminotransferase 20 U/L (0-31); Albumin Level 3.9 g/dL (3.5-5.0); Alkaline Phosphatase 63 U/L (39-117); Anion Gap 14 (12-20); Aspartate Amino Transferase 18 U/L (5-31); Bilirubin Total 0.4 mg/dL (0.0-1.0); Blood Urea Nitrogen 17 mg/dL (9-16); Calcium 9.8 mg/dL (8.4-10.2); Carbon Dioxide 24 mmol/L (22-29); Chloride 108 mmol/L (96-108); Cholesterol 158 mg/dL; Estimated Glomerular Filt Rate > 60; Glucose Fasting 151 mg/dL (60-99); HDL Cholesterol 29 mg/dL; LDL Cholesterol Calculated 84 mg/dl; Potassium 3.8 mmol/L (3.3-5.1); Sodium 142 mmol/L (135-145); Total Protein 6.4 g/dL (6.5-8.0); Triglycerides 228 mg/dL
[2022-12-11 12:32] LABS: Creatinine Urine 94.61 mg/dL; Microalbum/Creatinine Ratio Ur 7.3 ug/mg cr
== END 2022-12-11 08:40 | disposition home or self-care (01) ==
LOC: HO.HMGCLDS 08:39
PROVIDERS: PCP Internal Medicine; Visit Provider Internal Medicine
DX: Z00.00 Encounter for general adult medical examination without abnormal findings (principal); E11.9 Type 2 diabetes mellitus without complications
CPT/HCPCS: 36415; 80053; 80061; 82043; 83036; 85025

== ENCOUNTER 2023-03-11 07:32 | Outpatient (REF) | payer BC, SELFPAY ==
[2023-03-11 11:58] LABS: MANUAL DIFF FLAG NO
[2023-03-11 12:03] LABS: Basophils Percent Auto 0.7 % (0-2); Eosinophils Absolute Auto 0.1 X10*3/uL (0.0-0.4); Eosinophils Percent Auto 2.2 % (0-4); Hematocrit 41.3 % (37.0-47.0); Hemoglobin 13.5 g/dl (12.0-16.0); Imm Gran Abs Auto 0.03 X10*3/uL (0.00-0.03); Imm Gran Pct Auto 0.5 % (0.0-0.4); Lymphocytes Absolute Auto 1.4 X10*3/uL (1.2-4.9); Lymphocytes Percent Auto 22.8 % (20-40); Mean Corpuscular HGB Conc 32.7 g/dl (31.0-35.0); Mean Corpuscular Hemoglobin 29.3 pg (27.0-33.0); Mean Corpuscular Volume 89.8 fL (80.0-98.0); Mean Platelet Volume 10.4 fL (9.4-12.3); Monocytes Absolute Auto 0.6 X10*3/uL (0.1-1.2); Monocytes Percent Auto 9.2 % (2-11); Neutrophils Absolute Auto 3.9 x10*3/uL (2.0-8.3); Neutrophils Percent Auto 64.6 % (45-73); Platelet Count 212 X10*3/uL (160-400); Red Cell Distribution Width 12.7 % (11.0-16.0)
[2023-03-11 12:17] LABS: Alanine Aminotransferase 19 U/L (0-31); Albumin Level 4.1 g/dL (3.5-5.0); Alkaline Phosphatase 85 U/L (39-117); Anion Gap 16 (12-20); Aspartate Amino Transferase 17 U/L (5-31); Bilirubin Total 0.3 mg/dL (0.0-1.0); Blood Urea Nitrogen 24 mg/dL (9-16); Calcium 9.2 mg/dL (8.4-10.2); Carbon Dioxide 24 mmol/L (22-29); Chloride 106 mmol/L (96-108); Cholesterol 157 mg/dL (<200); Estimated Glomerular Filt Rate > 60; Glucose Fasting 205 mg/dL (60-99); HDL Cholesterol 32 mg/dL (>40); LDL Cholesterol Calculated 61 mg/dL (<100); Sodium 142 mmol/L (135-145); Total Protein 6.7 g/dL (6.5-8.0); Triglycerides 321 mg/dL (<150)
[2023-03-11 12:25] LABS: Estimated Average Glucose 169 mg/dL; Hemoglobin A1c % 7.5 % (<6.0)
[2023-03-11 13:17] LABS: Creatinine Urine 60.46 mg/dL; Microalbumin Urine < 5.0 mg/L
== END 2023-03-11 07:33 | disposition home or self-care (01) ==
LOC: HO.HMGCLDS 07:32
PROVIDERS: PCP Internal Medicine; Visit Provider Internal Medicine
DX: E11.9 Type 2 diabetes mellitus without complications (principal); K21.9 Gastro-esophageal reflux disease without esophagitis; G25.81 Restless legs syndrome; E78.5 Hyperlipidemia, unspecified
CPT/HCPCS: 36415; 80053; 80061; 82043; 82570; 83036; 85025

== ENCOUNTER 2023-07-27 07:35 | Outpatient (REF) | payer BC, SELFPAY ==
[2023-07-27 11:39] LABS: MANUAL DIFF FLAG NO
[2023-07-27 11:46] LABS: Basophils Percent Auto 0.7 % (0-2); Eosinophils Absolute Auto 0.1 X10*3/uL (0.0-0.4); Eosinophils Percent Auto 2.5 % (0-4); Hematocrit 41.5 % (37.0-47.0); Hemoglobin 13.6 g/dl (12.0-16.0); Imm Gran Abs Auto 0.02 X10*3/uL (0.00-0.03); Imm Gran Pct Auto 0.5 % (0.0-0.4); Lymphocytes Absolute Auto 1.2 X10*3/uL (1.2-4.9); Lymphocytes Percent Auto 27.6 % (20-40); Mean Corpuscular HGB Conc 32.8 g/dl (31.0-35.0); Mean Corpuscular Hemoglobin 29.2 pg (27.0-33.0); Mean Corpuscular Volume 89.2 fL (80.0-98.0); Mean Platelet Volume 11.1 fL (9.4-12.3); Monocytes Absolute Auto 0.5 X10*3/uL (0.1-1.2); Monocytes Percent Auto 11.4 % (2-11); Neutrophils Absolute Auto 2.5 x10*3/uL (2.0-8.3); Neutrophils Percent Auto 57.3 % (45-73); Platelet Count 204 X10*3/uL (160-400); Red Blood Count 4.65 X10*6/uL (4.20-5.50); Red Cell Distribution Width 12.4 % (11.0-16.0); White Blood Count 4.4 X10*3/uL (4.8-10.8)
[2023-07-27 12:07] LABS: Estimated Average Glucose 183 mg/dL
[2023-07-27 12:14] LABS: Creatinine Urine 62.36 mg/dL; Microalbumin Urine < 5.0 mg/L
[2023-07-27 12:18] LABS: Alanine Aminotransferase 20 U/L (0-31); Albumin Level 4.1 g/dL (3.5-5.0); Alkaline Phosphatase 94 U/L (39-117); Anion Gap 16 (12-20); Aspartate Amino Transferase 15 U/L (5-31); Bilirubin Total 0.4 mg/dL (0.0-1.0); Blood Urea Nitrogen 25 mg/dL (9-16); Calcium 9.3 mg/dL (8.4-10.2); Carbon Dioxide 23 mmol/L (22-29); Chloride 104 mmol/L (96-108); Estimated Glomerular Filt Rate > 60; Glucose Random 206 mg/dL (60-115); Potassium 3.7 mmol/L (3.3-5.1); Sodium 139 mmol/L (135-145); Total Protein 7.1 g/dL (6.5-8.0)
== END 2023-07-27 07:36 | disposition home or self-care (01) ==
LOC: HO.HMGCLDS 07:35
PROVIDERS: PCP Internal Medicine; Visit Provider Internal Medicine
DX: E11.9 Type 2 diabetes mellitus without complications (principal); I10 Essential (primary) hypertension; K21.9 Gastro-esophageal reflux disease without esophagitis
CPT/HCPCS: 36415; 80053; 82043; 82570; 83036; 85025

== ENCOUNTER 2023-07-28 10:54 | Outpatient (REF) | payer BC, SELFPAY ==
--- NOTE | ~2023-07-28 | XR_ITS ---
EXAMINATION: XR SHOULDER, LEFT CLINICAL INFORMATION: Left shoulder pain. COMPARISON: None available. TECHNIQUE: Four views of the left shoulder. FINDINGS: There is mild acromioclavicular osteoarthritis. Glenohumeral joint is well preserved. No fracture. Alignment is anatomic. Soft tissues are normal with no abnormal calcifications. XR/XR shoulder LT min 2V IMPRESSION: Mild acromioclavicular osteoarthritis. No acute fractures or malalignment.
== END 2023-07-28 10:55 | disposition home or self-care (01) ==
LOC: HO.XRAY 10:54
PROVIDERS: PCP Internal Medicine; Visit Provider Internal Medicine
DX: M25.512 Pain in left shoulder (principal)
CPT/HCPCS: 73030

== ENCOUNTER 2023-11-06 12:02 | Outpatient (REF) | payer MEDICARE, SELFPAY ==
[2023-11-06 13:46] LABS: Estimated Average Glucose 171 mg/dL; Hemoglobin A1c % 7.6 % (<6.0)
[2023-11-06 13:51] LABS: Anion Gap 14 (12-20); Blood Urea Nitrogen 10 mg/dL (9-16); Carbon Dioxide 26 mmol/L (22-29); Chloride 105 mmol/L (96-108); Estimated Glomerular Filt Rate > 60; Glucose Random 119 mg/dL (60-115); Potassium 4.2 mmol/L (3.3-5.1); Sodium 141 mmol/L (135-145)
== END 2023-11-06 12:03 | disposition home or self-care (01) ==
LOC: HO.HMGCLDS 12:02
PROVIDERS: PCP Internal Medicine; Visit Provider Internal Medicine
DX: I10 Essential (primary) hypertension (principal); E11.9 Type 2 diabetes mellitus without complications
CPT/HCPCS: 36415; 80048; 83036

== ENCOUNTER 2023-11-11 11:17 | Outpatient (REF) | payer MEDICARE, SELFPAY ==
[2023-11-11 13:00] LABS: MANUAL DIFF FLAG NO
[2023-11-11 13:01] LABS: Appearance Urine Clear; Color Urine Yellow; Glucose Urine UA >=1000 mg/dL (Negative); Leukocyte Esterase Urine Negative (Negative); Nitrite Urine Negative (Negative); Specific Gravity - Urine >= 1.030 (1.005-1.025); UMIC TRIGGER UA YES; Urine Blood Negative (Negative); Urine Ketones Negative (Negative); Urine Protein Negative (Neg-Trace)
[2023-11-11 13:05] LABS: Basophils Percent Auto 0.8 % (0-2); Eosinophils Absolute Auto 0.1 X10*3/uL (0.0-0.4); Eosinophils Percent Auto 2.5 % (0-4); Hematocrit 41.5 % (37.0-47.0); Hemoglobin 13.6 g/dl (12.0-16.0); Imm Gran Abs Auto 0.01 X10*3/uL (0.00-0.03); Imm Gran Pct Auto 0.2 % (0.0-0.4); Lymphocytes Absolute Auto 1.3 X10*3/uL (1.2-4.9); Lymphocytes Percent Auto 24.7 % (20-40); Mean Corpuscular HGB Conc 32.8 g/dl (31.0-35.0); Mean Corpuscular Hemoglobin 29.5 pg (27.0-33.0); Mean Platelet Volume 10.3 fL (9.4-12.3); Monocytes Absolute Auto 0.5 X10*3/uL (0.1-1.2); Monocytes Percent Auto 8.9 % (2-11); Neutrophils Absolute Auto 3.3 x10*3/uL (2.0-8.3); Neutrophils Percent Auto 62.9 % (45-73); Platelet Count 214 X10*3/uL (160-400); Red Blood Count 4.61 X10*6/uL (4.20-5.50); Red Cell Distribution Width 12.3 % (11.0-16.0); White Blood Count 5.3 X10*3/uL (4.8-10.8)
[2023-11-11 13:07] LABS: Bacteria Urine None Seen (None Seen); Hyaline Casts Urine 0-2 /LPF (0-2); RBC Urine 0-2 /HPF (0-2); WBC Urine 0-5 /HPF (0-5)
[2023-11-11 13:23] LABS: Estimated Average Glucose 177 mg/dL; Hemoglobin A1c % 7.8 % (<6.0)
[2023-11-11 13:26] LABS: Alanine Aminotransferase 20 U/L (0-31); Albumin Level 4.5 g/dL (3.5-5.0); Alkaline Phosphatase 69 U/L (39-117); Anion Gap 13 (12-20); Aspartate Amino Transferase 16 U/L (5-31); Bilirubin Total 0.7 mg/dL (0.0-1.0); Blood Urea Nitrogen 18 mg/dL (9-16); Calcium 9.5 mg/dL (8.4-10.2); Carbon Dioxide 25 mmol/L (22-29); Chloride 105 mmol/L (96-108); Cholesterol 181 mg/dL (<200); Estimated Glomerular Filt Rate > 60; Glucose Fasting 132 mg/dL (60-99); HDL Cholesterol 38 mg/dL (>40); LDL Cholesterol Calculated 106 mg/dL (<100); Sodium 139 mmol/L (135-145); Total Protein 7.3 g/dL (6.5-8.0); Triglycerides 186 mg/dL (<150)
[2023-11-11 13:42] LABS: Thyroid Stimulating Hormone 1.37 uIU/mL (0.32-4.0)
[2023-11-11 13:56] LABS: Creatinine Urine 56.07 mg/dL; Microalbumin Urine < 5.0 mg/L
== END 2023-11-11 11:18 | disposition home or self-care (01) ==
LOC: HO.10HDL 11:17
PROVIDERS: Visit Provider Internal Medicine
DX: I10 Essential (primary) hypertension (principal); E11.9 Type 2 diabetes mellitus without complications; E78.9 Disorder of lipoprotein metabolism, unspecified
CPT/HCPCS: 36415; 80053; 80061; 81001; 81003; 82043; 82570; 83036; 84443; 85025

== ENCOUNTER 2023-11-13 08:14 | Outpatient (REF) | payer MEDICARE, SELFPAY ==
--- NOTE | ~2023-11-13 | MM_ITS ---
EXAMINATION: MM SCREENING DIGITAL BREAST TOMOSYNTHESIS, BILATERAL CLINICAL INFORMATION: Screening. Asymptomatic. COMPARISON: Mammography: This study is compared with prior exams dating back to 2015. TECHNIQUE: Digital breast tomosynthesis is performed in both the craniocaudal and mediolateral oblique views along with computer-aided detection (CAD). Synthesized 2D images are generated from the tomosynthesis. FINDINGS: There are scattered areas of fibroglandular density (ACR BI-RADS breast composition Category b). There are no significant masses, abnormal calcifications, or other abnormalities. MM/MM tomosynthesis screening BI IMPRESSION: No mammographic evidence of malignancy. ASSESSMENT: BI-RADS BI-RADS 1 - Negative RECOMMENDATION: Routine annual mammography screening. 1 year F/U This examination should not preclude the clinical evaluation of a suspicious palpable abnormality. This patient's information was entered into a reminder system with a target due date for their next mammogram.
== END 2023-11-13 08:15 | disposition home or self-care (01) ==
LOC: HO.MAMMO 08:14
PROVIDERS: PCP Internal Medicine; Visit Provider Internal Medicine
DX: Z12.31 Encounter for screening mammogram for malignant neoplasm of breast (principal)
CPT/HCPCS: 77063; 77067

== ENCOUNTER → 2023-11-13 08:15 | Outpatient (BNV) | payer MEDICARE, SELFPAY | PROVIDERS: PCP Internal Medicine; Visit Provider Radiology Diagnostic Radiology | DX: Z12.31 Encounter for screening mammogram for malignant neoplasm of breast (principal) | CPT/HCPCS: 77063; 77067 ==

== ENCOUNTER 2023-12-16 07:57 | Outpatient (AMB) | payer MEDICARE, SELFPAY ==
--- NOTE | 2023-12-16 08:00 | MHC.OFFVIS ---
Vital Signs 12/16/23 08:02 Height 5 ft 4 in Weight 175 lb BMI 30.0 Handedness Right Intake Visit Reasons: N/P left shoulder Intake Note: Priyanka is a 63 year old right hand dominant female who presents today with left shoulder pain. Referred by Dr. Blanchard who ordered her an MRI at [facility]. Patient reports over 6 months is when sharp pains began in her left shoulder. She states at night her shoulder aches affecting her sleep. She expresses pain and weakness with reaching behind her head and crossing over her body laterally. She denies numbness and tingling and recent injury. The patient states that she aggravated her shoulder when reaching out to help her grandson when he was about to spill his drink. Allergies No Known Allergies Allergy (Verified 12/16/23 08:02) Medication List - Last Reconciled 12/16/23 by Keith Owens MD atorvastatin 1 tab PO DAILY empagliflozin (Jardiance) 10 mg PO DAILY escitalopram oxalate 1 tab PO DAILY glipizide 10 mg PO BID losartan 1 tab PO DAILY omeprazole 1 cap PO DAILY ropinirole tabs PO sitagliptin phosphate (Januvia) 25 mg PO DAILY FOR[facility]LY [facility] Medical History (Updated 12/17/23 @ 07:35 by Keith Owens MD) Anxiety Restless leg syndrome Hiatal hernia GERD (gastroesophageal reflux disease) Diverticulitis HTN (hypertension) Diabetes Surgical History (Updated 01/10/22 @ 13:54 by Katlyn Bejarano RN) History of esophagogastroduodenoscopy (EGD) Hx of colonoscopy Social History Are you a primary intensive care medicine specialist to a significant other at home: No Do you presently have visiting nurse or other home services: No Patient Tobacco Use Status: Former Tobacco user Physical Exam Vital Signs: BMI result Body Mass Index 30.0 Const Other: Well-nourished well-developed very friendly female awake alert and oriented x3 in no acute distress Extrem Other: Bilateral upper extremity examination shows good capillary refill, no skin lesions noted, normal sensation light touch Left shoulder examination shows slightly decreased range of motion when compared to her right shoulder, 4+ out of 5 strength with supraspinatus testing, positive impingement signs, tenderness over her acromioclavicular joint, no instability Office Procedures Joint Injection/Drain Joint Injection/Drain Primary Site: left shoulder Prep: site was prepped using aseptic technique Injected: 40 mg of, DepoMedrol and 1% plain lidocaine Procedure: The patient tolerated the procedure well Coding 11265 - Large joint Procedure code (CPT) selection complete Results Reviewed Results Reviewed: MRI of the patient's left shoulder shows severe acromioclavicular joint narrowing, a type 2 acromion, signal change within the supraspinatus tendon most likely due to rotator cuff tendinosis Assessment & Plan Assessment & Plan (1) Impingement syndrome of left shoulder: Code(s): M75.42 - Impingement syndrome of left shoulder Category: Medical Plan Ms. Aguilar presents with left shoulder pain most likely due to impingement syndrome and rotator cuff tendinosis. I had a lengthy discussion with the patient regarding the treatment options. The risks and benefits of a left shoulder cortisone injection were discussed at length with the patient. The patient wished to proceed. She tolerated the injection well. She will continue with her home stretching program to prevent stiffness. She will contact me prior to her follow-up appointment in 3 months should any questions or concerns arise. Feel free to call me at any time should questions regarding her orthopedic management arise. Thank you very much for asking me to see this very friendly patient. I spent 22 minutes in reviewing the patient's records and imaging studies, seeing the patient and documenting in the medical record. Orders: Orders AMB Joint Injection/Aspiration 12/16/23 M75.42 - Impingement syndrome of left shoulder Coding Level of Care Code New Pt Level 3 (44891) Diagnoses Impingement syndrome of left shoulder M75.42 CPT Codes Coding - 76318 Large joint: 16529 - Large joint ([id number])
== END 2023-12-16 08:37 | disposition home or self-care (01) ==
PROVIDERS: PCP Internal Medicine; Visit Provider Orthopaedic Surgery
DX: M75.42 Impingement syndrome of left shoulder (principal)
CPT/HCPCS: 20610; 99203

== ENCOUNTER → 2023-12-16 07:57 | Outpatient (BNVA) | payer MEDICARE, SELFPAY | PROVIDERS: PCP Internal Medicine; Visit Provider Orthopaedic Surgery | DX: M75.42 Impingement syndrome of left shoulder (principal) | CPT/HCPCS: 20610; 99202; J1010 ==

== ENCOUNTER 2024-03-09 10:39 | Outpatient (REF) | payer MEDICARE, SELFPAY ==
[2024-03-09 13:51] LABS: Anion Gap 12 (12-20); Blood Urea Nitrogen 15 mg/dL (9-16); Calcium 9.3 mg/dL (8.4-10.2); Carbon Dioxide 26 mmol/L (22-29); Chloride 103 mmol/L (96-108); Estimated Glomerular Filt Rate > 60; Glucose Random 225 mg/dL (60-115); Potassium 4.2 mmol/L (3.3-5.1); Sodium 137 mmol/L (135-145)
[2024-03-09 13:59] LABS: Estimated Average Glucose 177 mg/dL; Hemoglobin A1c % 7.8 % (<6.0); Total Hemoglobin (HGBA1C) 3216.9909 umol/L
== END 2024-03-09 10:40 | disposition home or self-care (01) ==
LOC: HO.HMGCLDS 10:39
PROVIDERS: PCP Internal Medicine; Referring Provider Internal Medicine; Visit Provider Internal Medicine
DX: E11.9 Type 2 diabetes mellitus without complications (principal)
CPT/HCPCS: 36415; 80048; 83036

== ENCOUNTER 2024-03-10 08:44 | Outpatient (AMB) | payer MEDICARE, SELFPAY ==
--- NOTE | 2024-03-10 08:46 | A.OFFVIS_ITS ---
Vital Signs 03/10/24 08:46 Height 5 ft 4 in Weight 175 lb BMI 30.0 Intake Visit Reasons: Left shoulder pain and stiffness Intake Note: Priyanka is a 63 year old right hand dominant female who presents with complaints of progressively worsening left shoulder pain and stiffness. The patient describes her pain as sharp and severe in nature. Her pain has gotten worse over the last year in spite of continued non operative treatments. She has failed the last 6 weeks of conservative treatment. She did have a cortisone injection given into her left shoulder earlier this year which gave her only temporary relief. The patient reports difficulty lifting her left hand above shoulder height. She has done physical therapy exercises which aggravated her pain. She has also tried Tylenol and anti-inflammatory medicines which gave her minimal relief. The patient's left shoulder pain is now interfering with her activities of daily living and her ability to sleep well through the night. Allergies No Known Allergies Allergy (Verified 03/10/24 08:47) Medication List - Last Reconciled 03/10/24 by Keith Owens MD atorvastatin 1 tab PO DAILY empagliflozin (Jardiance) 10 mg PO DAILY escitalopram oxalate 1 tab PO DAILY glipizide 10 mg PO BID losartan 1 tab PO DAILY omeprazole 1 cap PO DAILY ropinirole tabs PO sitagliptin phosphate (Januvia) 25 mg PO DAILY [facility] Medical History Anxiety Restless leg syndrome Hiatal hernia GERD (gastroesophageal reflux disease) Diverticulitis HTN (hypertension) Diabetes Surgical History History of esophagogastroduodenoscopy (EGD) Hx of colonoscopy Social History Are you a primary career professional to a significant other at home: No Do you presently have visiting nurse or other home services: No Patient Tobacco Use Status: Former Tobacco user Physical Exam Vital Signs: BMI result Body Mass Index 30.0 Const Other: Well-nourished well-developed very friendly female awake alert and oriented x3 in no acute distress Extrem Other: Bilateral upper extremity examination shows good capillary refill, no skin lesions noted, normal sensation light touch Left shoulder examination shows decreased active and passive range of motion when compared to her right shoulder, 4+ out of 5 strength with supraspinatus testing, positive impingement signs, tenderness over her acromioclavicular joint, no instability Results Reviewed Results Reviewed: MRI of the patient's left shoulder show severe acromioclavicular joint narr owing, a type 3 acromion, signal change within the supraspinatus tendon most likely due to adhesive capsulitis Assessment & Plan Assessment & Plan (1) Impingement syndrome of left shoulder: Code(s): M75.42 - Impingement syndrome of left shoulder Category: Medical Plan Ms. Aguilar presents with left shoulder pain and stiffness due to impingement syndrome, acromioclavicular joint arthritis and adhesive capsulitis. I had a lengthy discussion with the patient regarding the treatment options. At this point she has failed continued non operative treatments. The risks and benefits of left shoulder surgery were discussed at length with the patient. The patient wishes to proceed with surgery. Surgery will most likely involve left shoulder diagnostic arthroscopy with distal clavicle excision, acromioplasty, anterior capsular release and manipulation under anesthesia. The patient will be scheduled for next available date. She will follow-up as instructed. Feel free to call me at any time should questions regarding her orthopedic management arise. I spent 22 minutes in reviewing the patient's records and imaging studies, seeing the patient and documenting in the medical record. Coding Level of Care Code Est Pt Level 3 (27421) Complex EM visit Add On G2211 Diagnoses Impingement syndrome of left shoulder M75.42
== END 2024-03-10 09:05 | disposition home or self-care (01) ==
PROVIDERS: PCP Internal Medicine; Visit Provider Orthopaedic Surgery
DX: M75.42 Impingement syndrome of left shoulder (principal); M19.012 Primary osteoarthritis, left shoulder
CPT/HCPCS: 99213; G2211

== ENCOUNTER → 2024-03-10 08:44 | Outpatient (BNVA) | payer MEDICARE, SELFPAY | PROVIDERS: PCP Internal Medicine; Visit Provider Orthopaedic Surgery | DX: M75.42 Impingement syndrome of left shoulder (principal) | CPT/HCPCS: 99212 ==

== ENCOUNTER 2024-03-25 08:36 | Day surgery (SDC) | payer MEDICARE, SELFPAY ==
[2024-03-15 08:56] VITALS: BMI 30.9
--- NOTE | 2024-03-16 13:22 | HO.ANESPROP2 ---
Documented by User: Tessy Crespo NP 03/23/24 09:46 HPI - Anesthesia Eval Consult details Narrative: 64yo F for Left Shoulder Arthroscopy,distal clavicle,acromioplasty,capsular release,and manipulation Anesthesia Pre-Procedure Meds Is the patient on any of the following meds?: GLP1/DPP4 PMFSH Active Problems Active Problems: All Active Problems Impingement syndrome of left shoulder (Acute) Past Medical History Medical History Elevated cholesterol Anxiety Restless leg syndrome Hiatal hernia GERD (gastroesophageal reflux disease) Diverticulitis HTN (hypertension) Diabetes Family History Family history of problems with anesthesia: No Surgical History Surgical History Hx of foot surgery History of esophagogastroduodenoscopy (EGD) Hx of colonoscopy History of Problems with Anesthesia: No Social History Social History Are you a primary certified social workers in health care to a significant other at home: No Do you presently have visiting nurse or other home services: No Patient Tobacco Use Status: Former Tobacco user Use of substances other than those prescribed or required for medical reasons: No Have you been hit, kicked, punched, or otherwise hurt by someone within the past year? If so, by whom?: No Are you DNR?: No Advance Directives: No Advance Directives Information Provided: Yes Advance Directives on File: No Recently lost weight without trying: No Eating poorly because of decreased appetite: No Nutrition Risks: No Nutritional Risk Patient : No : No Poor oral hygiene: Yes (1 bridge upper right, 2 crowns) Meds Allergies Allergy/AdvReac Type Severity Reaction Status Date / Time No Known Allergies Allergy Verified 03/10/24 08:47 Home Medications ?Medication ?Instructions ?Recorded ?Confirmed ?Last Taken ?Type atorvastatin 10 mg tablet 1 tab PO DAILY 01/10/22 03/15/24 Unknown History escitalopram oxalate 10 mg tablet 1 tab PO BEDTIME 01/10/22 03/15/24 Unknown History losartan 50 mg tablet 1 tab PO DAILY 01/10/22 03/15/24 Unknown History omeprazole 20 mg capsule,delayed 1 cap PO DAILY 01/10/22 03/15/24 03/25/24 History release ropinirole 1 mg tablet 2 mg PO BID 01/10/22 03/15/24 Unknown History glipizide 10 mg tablet 10 mg PO BID 12/16/23 03/15/24 Unknown History fenofibrate 160 mg tablet 160 mg PO DAILY 03/15/24 03/15/24 03/25/24 History sitagliptin phosphate 50 mg tablet 100 mg PO BEDTIME 03/15/24 03/15/24 03/21/24 History (Judit) Exam Height,Weight and Vital Signs: Height 5 ft 4 in Weight 81.647 kg Pertinent Lab Results Pertinent Lab Results: Laboratory Tests 11/11/23 03/09/24 11:22 10:44 WBC 5.3 Hgb 13.6 Hct 41.5 Plt Count 214 Sodium 137 Potassium 4.2 Chloride 103 Carbon Dioxide 26 BUN 15 Creatinine 0.78 Assessment and Plan Assessment Anesthesia Assessment: Chart Reviewed Final Anesthetic Review Family History of Problems with Anesthesia: No History of Problems with Anesthesia: No Documented by User: Jessica Castillo MD 03/25/24 10:01 [facility] Past Medical History Medical History Elevated cholesterol Anxiety Restless leg syndrome Hiatal hernia GERD (gastroesophageal reflux disease) Diverticulitis HTN (hypertension) Diabetes Surgical History Surgical History Hx of foot surgery History of esophagogastroduodenoscopy (EGD) Hx of colonoscopy Social History Social History Are you a primary certified social workers in health care to a significant other at home: No Do you presently have visiting nurse or other home services: No Patient Tobacco Use Status: Former Tobacco user Use of substances other than those prescribed or required for medical reasons: No Have you been hit, kicked, punched, or otherwise hurt by someone within the past year? If so, by whom?: No Are you DNR?: No Advance Directives: No Advance Directives Information Provided: Yes Advance Directives on File: No Recently lost weight without trying: No Eating poorly because of decreased appetite: No Nutrition Risks: No Nutritional Risk Patient : No : No Poor oral hygiene: Yes (1 bridge upper right, 2 crowns) Meds Allergies Allergy/AdvReac Type Severity Reaction Status Date / Time No Known Allergies Allergy Verified 03/10/24 08:47 Home Medications ?Medication ?Instructions ?Recorded ?Confirmed ?Last Taken ?Type atorvastatin 10 mg tablet 1 tab PO DAILY 01/10/22 03/15/24 Unknown History escitalopram oxalate 10 mg tablet 1 tab PO BEDTIME 01/10/22 03/15/24 Unknown History losartan 50 mg tablet 1 tab PO DAILY 01/10/22 03/15/24 Unknown History omeprazole 20 mg capsule,delayed 1 cap PO DAILY 01/10/22 03/15/24 03/25/24 History release ropinirole 1 mg tablet 2 mg PO BID 01/10/22 03/15/24 Unknown History glipizide 10 mg tablet 10 mg PO BID 12/16/23 03/15/24 Unknown History fenofibrate 160 mg tablet 160 mg PO DAILY 03/15/24 03/15/24 03/25/24 History sitagliptin phosphate 50 mg tablet 100 mg PO BEDTIME 03/15/24 03/15/24 03/21/24 History (Judit) Exam Airway Mallampati Class: II TM Dist: >3cm Neck ROM: Full Heart: rrr Lungs: cta Assessment and Plan Assessment Anesthesia Assessment: Anesthesia Plan Discussed Final Anesthetic Review NPO: Yes ASA Class: III Final Preanesthetic Review: No Changes in Pt Med Stat, Meds/Allgs Chart Reviewed, Consent Obtained/Reviewed and Anes Risks/Benef Reviewed Patient Risk: Intermediate Procedure Risk: Intermediate Anesthetic Plan Anesthetic Plan: Regional Block Disposition: Standard PACU
[2024-03-25] VITALS (11 sets, daily range): BP systolic 101–173; BP diastolic 58–76; PULSE 75–100; RESP 16; TEMP 36.1–36.3; O2SAT 92–96
[2024-03-25] MEDS: Lactated Ringers 1,000 ML 100 ML IVCONT (09:30)
[2024-03-25 09:40] LABS: Glucose, Whole Blood 197 mg/dL (60-115)
--- NOTE | 2024-03-25 12:05 | P.BOP_ITS ---
Brief Operative Note Date of Service: 03/25/24 Pre-op diagnosis: Left shoulder acromioclavicular joint arthritis, left shoulder impingement syndrome, left shoulder adhesive capsulitis Post-op diagnosis: same Procedure: Left shoulder diagnostic arthroscopy with left shoulder arthroscopic distal clavicle excision, left shoulder arthroscopic acromioplasty, left shoulder arthroscopic anterior capsular release, left shoulder manipulation under anesthesia Implants: none Surgeon: Keith Owens MD Anesthesia: GETA and regional Was an Financial Recording Clerk used for this Procedure?: No Estimated blood loss (mL): 15 Pathology: none sent Condition: stable Disposition: PACU
--- NOTE | 2024-03-25 12:06 | W.PM.OPN ---
Operative Note Operative Note Date of Service: 03/25/24 Narrative: After the patient was identified as Priyanka Aguilar and her left shoulder was initialed by myself the patient was brought to the holding area where a left shoulder interscalene regional block was performed by the anesthesiologist in routine fashion. The patient was then brought to the operating room where general anesthesia was induced by the anesthesiologist in routine fashion. The patient was given 2 g of IV Ancef preoperatively for infection prophylaxis. Examination under anesthesia of the patient's left shoulder showed decreased range of motion when compared to the right shoulder. The patient's left shoulder had forward flexion to 90 degrees compared to 160 degrees, external rotation to 20 degrees compared to 60 degrees, and internal rotation to 30 degrees compared to 40 degrees. The patient was gently positioned in the beach chair position with all bony prominences well padded. The patient's left shoulder region and upper extremity were prepped and draped in sterile fashion. A formal time-out was completed. A #11 scalpel blade was used to make a posterior portal 2 cm inferior and 1 cm medial to the posterolateral corner of the acromion. Blunt trocar technique was used to enter the glenohumeral joint in routine fashion. An anterior portal was made just lateral to the coracoid process after proper positioning was confirmed using a spinal needle. Diagnostic arthroscopy showed minimal degenerative changes of the glenoid and humeral head articular surfaces. There was no evidence of rotator cuff tearing. There was no evidence of injury to the biceps tendon or its insertion onto the glenoid. There was inflammation of the anterior joint capsule consistent with adhesive capsulitis. The ArthroCare Wand was then used to perform an anterior capsular release between the inferior border of the biceps tendon and the superior border of the subscapularis tendon. The arthroscope was then placed from the posterior portal into the subacromial space. A lateral portal was made 2 fingerbreadths lateral to the anterior lateral corner of the acromion. The ArthroCare Wand was used to ablate soft tissues along the undersurface of the acromion as well as to excise the coracoacromial ligament. There was a sharp spur along the undersurface of the acromion which was removed using the hooded bur. The arthroscope was then placed into the lateral portal and the acromioplasty was completed with the bur in the posterior portal using the posterior aspect of the acromion as a cutting block. The ArthroCare Wand was then brought in through the anterior portal and was used to ablate soft tissues along the acromioclavicular joint and distal clavicle. The posterior and superior ligamentous structures were left intact. A distal clavicle excision of 8 mm was performed using the hooded bur. Any remaining bursal tissue was removed using the arthroscopic shaver. The subacromial space was irrigated and then drained. All arthroscopic instruments were removed. A gentle manipulation under anesthesia was then performed. Full passive range of motion was easily attained. The 3 portals were closed with 3-0 nylon interrupted suture. The subacromial space was injected with Marcaine. Dry sterile dressing was placed over all incisions. The patient's left upper extremity was placed into a sling. The patient was awoken and extubated in the operating room. The patient was transferred to the recovery room in stable condition.
[2024-03-25] MEDS: cefTRIAXone sodium 1 GM in 0.9 % Sodium Chloride 50 ML IV (12:33)
== END 2024-03-25 14:48 | disposition home or self-care (01) ==
PROVIDERS: PCP Internal Medicine; Visit Provider Orthopaedic Surgery
PROC: (CPT 29805; principal; 2024-03-25 10:30)
DX: M75.42 Impingement syndrome of left shoulder (principal); M19.012 Primary osteoarthritis, left shoulder; M75.02 Adhesive capsulitis of left shoulder; I10 Essential (primary) hypertension; E11.9 Type 2 diabetes mellitus without complications; G25.81 Restless legs syndrome; F41.9 Anxiety disorder, unspecified; Z79.84 Long term (current) use of oral hypoglycemic drugs; Z79.899 Other long term (current) drug therapy; Z87.891 Personal history of nicotine dependence
CPT/HCPCS: 29824; 29825; 29826; 82947; J0131; J0171; J0665; J0690; J0696; J1100; J1885; J2003; J2250; J2405; J2704; J2795; J3010

== ENCOUNTER → 2024-03-25 08:36 | Outpatient (BNV) | payer MEDICARE, SELFPAY | PROVIDERS: PCP Internal Medicine; Visit Provider Orthopaedic Surgery | DX: M19.012 Primary osteoarthritis, left shoulder (principal); M75.42 Impingement syndrome of left shoulder; M75.02 Adhesive capsulitis of left shoulder | CPT/HCPCS: 29824; 29826 ==

== ENCOUNTER 2024-04-06 13:42 | Outpatient (AMB) | payer MEDICARE, SELFPAY ==
--- NOTE | 2024-04-06 13:44 | A.OFFVIS_ITS ---
Intake Visit Reasons: PO LT shoulder 03/25/24 Intake Note: Priyanka is a 64 year old female who presents with complaints of mild intermittent discomfort in her left shoulder after undergoing left shoulder arthroscopic surgery on 03/25/2024. She denies any fevers or chills. She is no longer taking narcotics for discomfort. She continues with her home stretching program. Allergies No Known Allergies Allergy (Verified 04/06/24 13:49) Medication List - Last Reconciled 04/07/24 by Keith Owens MD atorvastatin 1 tab PO DAILY escitalopram oxalate 1 tab PO BEDTIME fenofibrate 160 mg PO DAILY glipizide 10 mg PO BID losartan 1 tab PO DAILY omeprazole 1 cap PO DAILY oxycodone 10 mg (2 x 5 mg) PO Q4H PRN 1 week ropinirole 2 mg PO BID sitagliptin phosphate (Januvia) 100 mg PO BEDTIME PFSH Medical History Elevated cholesterol Anxiety Restless leg syndrome Hiatal hernia GERD (gastroesophageal reflux disease) Diverticulitis HTN (hypertension) Diabetes Surgical History Hx of foot surgery History of esophagogastroduodenoscopy (EGD) Hx of colonoscopy Social History Are you a primary day care home mother to a significant other at home: No Do you presently have visiting nurse or other home services: No Patient Tobacco Use Status: Former Tobacco user Physical Exam Extrem Other: Left shoulder examination shows that the surgical incisions are well healed, no erythema, mild discomfort with range of motion, no instability Assessment & Plan Assessment & Plan (1) Left shoulder pain: Code(s): M25.512 - Pain in left shoulder Category: Medical Plan Priyanka is doing very well after undergoing left shoulder arthroscopic surgery on 03/25/2024. Her sutures were removed and Steri-Strips placed over her incisions. She will continue with her home stretching program. The do's and don'ts of lifting were discussed at length with the patient. She will contact me prior to her follow-up appointment in 6 weeks should any questions or concerns arise. Feel free to call me at any time should questions regarding her orthopedic management arise. Coding Level of Care Code Global (44804) Diagnoses Left shoulder pain M25.512
== END 2024-04-06 14:05 | disposition home or self-care (01) ==
PROVIDERS: PCP Internal Medicine; Visit Provider Orthopaedic Surgery
DX: M25.512 Pain in left shoulder (principal)
CPT/HCPCS: 99024

== ENCOUNTER → 2024-04-06 13:42 | Outpatient (BNVA) | payer MEDICARE, SELFPAY | PROVIDERS: PCP Internal Medicine; Visit Provider Orthopaedic Surgery | DX: M25.512 Pain in left shoulder (principal); Z47.89 Encounter for other orthopedic aftercare; Z98.890 Other specified postprocedural states | CPT/HCPCS: 99212 ==

== ENCOUNTER 2024-05-17 09:08 | Outpatient (AMB) | payer MEDICARE, SELFPAY ==
--- NOTE | 2024-05-17 09:13 | MHC.OFFVIS ---
Vital Signs 05/17/24 09:15 Height 5 ft 4 in Weight 178 lb BMI 30.6 Handedness Right Intake Visit Reasons: PO LT shoulder 03/25/24 Intake Note: Priyanka is a 64 year old female who presents today for a post operatively visit s/p left shoulder 03/25/2024. The patient reports mild intermittent discomfort in her left shoulder. She denies any fevers or chills. She continues with her home stretching program. Allergies No Known Allergies Allergy (Verified 05/17/24 09:15) Medication List - Last Reconciled 05/18/24 by Keith Owens MD atorvastatin 1 tab PO DAILY escitalopram oxalate 1 tab PO BEDTIME fenofibrate 160 mg PO DAILY glipizide 10 mg PO BID losartan 1 tab PO DAILY omeprazole 1 cap PO DAILY oxycodone 10 mg (2 x 5 mg) PO Q4H PRN 1 week ropinirole 2 mg PO BID sitagliptin phosphate (Januvia) 100 mg PO BEDTIME PFSH Medical History Elevated cholesterol Anxiety Restless leg syndrome Hiatal hernia GERD (gastroesophageal reflux disease) Diverticulitis HTN (hypertension) Diabetes Surgical History Hx of foot surgery History of esophagogastroduodenoscopy (EGD) Hx of colonoscopy Social History Are you a primary healthcare risk control consultant to a significant other at home: No Do you presently have visiting nurse or other home services: No Patient Tobacco Use Status: Former Tobacco user Physical Exam Vital Signs: BMI result Body Mass Index 30.6 Extrem Other: Left shoulder examination shows that the surgical incisions well healed, no erythema, almost full range of motion when compared to her right shoulder, minimal discomfort with range of motion, no instability Assessment & Plan Assessment & Plan (1) Left shoulder pain: Code(s): M25.512 - Pain in left shoulder Category: Medical Plan Ms. Aguilar continues to do very well after undergoing left shoulder arthroscopic surgery on 03/25/2024. She will continue with her home stretching program. The do's and don'ts of lifting were discussed at length with the patient. She will follow up with me on an as-needed basis should her symptoms not plateau at an unacceptable level over the next few months. Feel free to call me at any time should questions regarding her orthopedic management arise. Coding Level of Care Code Global (81575) Diagnoses Left shoulder pain M25.512
[2024-05-17 09:15] VITALS: BMI 30.6
== END 2024-05-17 09:32 | disposition home or self-care (01) ==
PROVIDERS: PCP Internal Medicine; Visit Provider Orthopaedic Surgery
DX: M25.512 Pain in left shoulder (principal)
CPT/HCPCS: 99024

== ENCOUNTER → 2024-05-17 09:08 | Outpatient (BNVA) | payer MEDICARE, SELFPAY | PROVIDERS: PCP Internal Medicine; Visit Provider Orthopaedic Surgery | DX: M25.512 Pain in left shoulder (principal); Z47.89 Encounter for other orthopedic aftercare; Z98.890 Other specified postprocedural states | CPT/HCPCS: 99212 ==

== ENCOUNTER 2024-07-05 13:48 | Outpatient (REF) | payer MEDICARE, SELFPAY ==
--- OUTSIDE RECORDS SUMMARY | 2024-07-05 16:11 | XMS_ITS ---
Author Organization [facility] Address [address] [place] [address] Care Team Providers Care Car Dealer Name Role Phone Alan Blanchard MD Primary Care Provider Unavaila ble Black, Yue Unavailable [phone] Allergies No Known Allergies REASON FOR VISIT Post-op Medications Medication SIG (Take, Route, Frequency, Duration) Notes Start Date End Date Status Irbesartan Not-Takin g Metformin & Diet Manage Prod Not-Taking Acetaminophen Extra Strength 500 MG 1 tablet as needed Orally every 6 hrs for 14 days 12/02/2022 Not-Taking Gabapentin 300 MG 1 capsule Orally at bedtime for 10 days 12/02/2022 Not-Taking Feldene 20 MG 1 capsule with food Orally Once a day for 30 day(s) 07/06/2015 Not-Taking Ibuprofen 800 MG 1 tablet with food o r milk as needed Orally every 6 hrs for 10 days 12/02/2022 Not-Taking Escitalopram Oxalate Active Omeprazole Active rOPINIRole HCl Activ e Cephalexin 500 MG 1 capsule Orally Fou r times a day for 10 days 01/09/2023 Not-Taking Jardiance 25 MG 1 tablet Orally Once a day Active Fenofibrate 160 MG 1 tablet Orally Once a day Active glipiZIDE Active Losartan Potassium 50 MG 1 tablet Orally Once a day Active Atorvastatin Calcium Active Social History Tobacco Use: Social History Observation Description Date Details (start date - stop date) Former Smoker NA - NA Tobacco Use/Smoking Question Answer Notes Are you a: former smoker Alcohol Screen Question Answer Notes Did you have a drink contain ing alcohol in the past year? Yes How often did you have a dri nk containing alcohol in the past year? 2 to 4 times a month (2 points) Points 2 Interpretation Negative Tobacco use other than smoking: Question Answer Notes Are you an other tobacco user? 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 ; Pain in left toe(s) M79.675 and Localized edema R60.0 Assessments Encounter Date Diagnosis (ICD Code) Assessment Notes Treatment Notes Treatment Clinical Notes Section Notes 01/27/2023 Lesion of left plantar nerve (ICD-10 - G57.62) 01/27/2023 Pain in left toe(s) (ICD-10 - M79.675) 01/27/2023 Localized edema (ICD-10 - R60.0) Plan Of Treatment Next Appt Details Follow Up: 4 Weeks, Reason: Progress Notes * Priyanka MOONEY ADOB:1960 (63 yo F)Acc No.[id number]:01/27/2023 PROGRESS NOTES Patient:?Stephanie Mooneyvan Mercado Provider:?Yue Ordoñez DPM :1960???Age:63 Y???Sex:Female D ate:01/27/2023 Address:[address] [place] [id number] Pcp:Alan Blanchard MD Subjective: * Chief Complaints: * ???Post-op * HPI: ???Post-op:?The patient presents for post-op of?Neuroma excision , Left.?Date of Surgery?:?12/31/2022 ?Current symptoms include?Pt denies fever, chills, nausea, calf pain, SOB, or increased anxiety, Pt states pain under control-? foot feels great .? * ROS:?General/Constitutional:?Nausea?denies.?Vomiting?denies.?Hunger Thirst?denies.?Loss appetite?denies.?Chills?denies.?Fatigue?denies.?Fever?denies.?Night Sweats?denies.?Unexplained weight loss?denies.?Ophthalmologic:?Blurred vision?denies.?Red eye?denies.?HEENTM:?Dentures?denies.?Dizziness?denies.?Glasses/contacts?denies.?Retinopathy?de nies.?Blurred/double vision?denies.?TMJ?denies.?Discharge/drainage?denies.?Implants?denies.?Hard of hearing denies.?Difficulty chewing/swallowing/speaking?denies.?Nose bleeds?denies.?Sore mouth?denies.?Swollen glands?denies.?Respiratory:?On Oxygen?denies.?Pneumonia/pleurisy?denies.?Bronchitis?denies.?Emphysema?denies.?C oughing?denies.?Cough blood?denies.?Shortness of breath?denies.?Wheezing?denies.?Cardiovascular:?Pacemaker?denies.?MVP?denies.?WPW?denies.?CHF?denies.?Heart attack?denies.?Septal defect?denies.?Rapid beat?denies.?Chest pain ?denies.?Atrial Fib.?denies.?Murmur/Palpitations?denies.?Gastrointestinal:?Hemorrhoids?denies.?Stomach/Abdominal pain?denies.?Dark blood stool?denies.?Irritable bowel ?denies.?Constipation?denies.?Diarrhea?denies.?Vomiting?denies.?Hematology:?Swelling?denies.?Bruising?denies.?Bleeding problem?denies.?Genitourinary:?Blood urine?denies.?Frequent/Painfu/urination/bladder control?denies.?Kidney stones?denies.?Infection (UTI)?denies.?Nephropathy?denies.?Musculoskeletal:?Hammertoes?denies.?Bunions?denies.?Scoliosis/kyphosis?denies.?Muscle cramps / walking?denies.?Generalized aches and pains?denies.?Weakness?denies.?Integ.:?Blake?denies.?Scars?denies.?Corns/calluses?admits.?Ingrown nails?admits.?Painful nails?denies.?Rashes?denies.?Neurologic:?Difficulty sleeping?denies.?Bipolar?denies.?Brain disorder?denies.?Balance trouble?denies.?Confusion?denies.?Fainting/blackouts?denies.?Headache?denies.?Tr emors?denies.? * Medical History:? * Surgical History:?colonoscop y Excision of neuroma left 3rd interspace 12/31/2022 * Hospitalization/Major Diagno stic Procedure:?C diverticulitis * Family History:?Mother: dece ased, diagnosed with Family history of arthritis, Unspecified essential hypertension.?Father: , heart attack, diagnosed with Diabetic - NIDDM, Unspecified cerebral artery occlusion with cerebral infarction, Other malignant neoplasm of unspecified site.? * Social History:?Tobacco Use:?Tobacco Use/Smoking?Are you a:?former smoker ?Tobacco use other than smoking?Are you an other tobacco user??No ???Drugs/Alcohol:?Drugs?Have you used drugs other than those for medical reasons in the past 12 months??No ?Alcohol Screen?Did you have a drink containing alcohol in the past year??Yes ?How often did you have a drink containing alcohol in the past year??2 to 4 times a month (2 points) ?Points?2 ?Interpretation?Negative ???Miscellaneous:?Caffeine: yes, frequency:, , 2-3 cups per day. ?Children: yes, 2. ?no Exercise. ?Marital status: . ?Occupation: [employer]. * Medications:?TakingJardiance 25 MG Tablet 1 tablet Orally Once a dayFenofibrate 160 MG Tablet 1 tablet Orally Once a dayglipiZIDE Losartan Potassium 50 MG Tablet 1 tablet Orally Once a dayAtorvastatin Calcium Escitalopram Oxalate Omeprazole rOPINIRole HCl Taking Jardiance 25 MG Tablet 1 tablet Orally Once a dayTaking Fenofibrate 160 MG Tablet 1 tablet Orally Once a dayTaking glipiZIDE Taking Losartan Potassium 50 MG Tablet 1 tablet Orally Once a dayTaking Atorvastatin Calcium Taking Escitalopram Oxalate Taking Omeprazole Taking rOPINIRole HCl Not- Taking/PRNCephalexin 500 MG Capsule 1 capsule Orally Four times a dayIbuprofen 800 MG Tablet 1 tablet with food or milk as needed Orally every 6 hrsAcetaminophen Extra Strength 500 MG Tablet 1 tablet as needed Orally every 6 hrsGabapentin 300 MG Capsule 1 capsule Orally at bedtimeFeldene 20 MG Capsule 1 capsule with food Orally Once a dayIrbesartan Metformin & Diet Manage Prod Medication List reviewed and reconciled with the patientNot-Taking/PRN Cephalexin 500 MG Capsule 1 capsule Orally Four times a dayNot-Taking/PRN Ibuprofen 800 MG Tablet 1 tablet with food or milk as needed Orally every 6 hrsNot-Taking/PRN Acetaminophen Extra Strength 500 MG Tablet 1 tablet as needed Orally every 6 hrsNot-Taking/PRN Gabapentin 300 MG Capsule 1 capsule Orally at bedtimeNot-Taking/PRN Feldene 20 MG Capsule 1 capsule with food Orally Once a dayNot-Taking/PRN Irbesartan Not-Taking/PRN Metformin & Diet Manage Prod Medication List reviewed and reconciled with the patient * Allergies:?N.K.D.A.yes[Aller gies Verified] Objective: * Vitals:?Ht: 5ft 4in, Wt: 185 , BMI:31.75, Shoe size: 7, BS: 169. * ???Past Orders: ???Lab:HEMOGLOBIN A1C (GLYCO HEMOGLOBIN) (Order Date - 01/12/2023) (Collection Date - 01/12/2023) ? Value Reference Range ?HEMOGLOBIN A1C (HH) 7.2 * Examination: ???Ophthalmology Referral: ?DIABETES EYE EXAM?Dressing: ?APPEARANCE?Clean, dry, and intact, with dry to moist blood present, no malodor.?Dermatologic: ?SURGICAL SITE?Incision edges are well aligned and adhered, CFT intact , (less) , edema , (+) pop , (-) , cellulitis , (-) , dehiscence , Drainage is , not present (+) numbness?.? Assessment: * Assessment: 1.?Lesion of left plantar ne rve - G57.62 (Primary)?2.?Pain in left toe(s) - M79.675?3.?Localized edema - R60.0? Plan: * Treatment: * Procedure Codes:? * Preventive Medicine:? ??Counseling:?Post-op:?I reviewed with the patient the usual surgical post-op course. The patient is to call with any questions/complications, and will follow-up as scheduled, gradually increase activity to tolerance, Pt can begin showering per usual starting tomorrow, can apply ABX ointment to incisions to help with scarring. No hot tub for 1 week, pt may swim in a pool no pierce or pond for 1 week. Pt may return to work no restrictions.? * Follow Up:?4 Weeks * Images: * Sign off status: Completed true * Provider:?Yue Ordoñez DPM Date:?2022 Generated for Claudia cox/Sophia/Liliana on:?07/05/2024 04:11 PM EST History and Physical Notes * HPI (History of Present Illness) Category Sub-Category Detail Notes Category Not es Post-op The patient presents for post-op of Neuroma excision , Left Current symptoms include Pt denies fever , chills, nausea, calf pain, SOB, or increased anxiety, Pt states pain under control- foot feels great Date of Surgery :: 12/31/2022 Examination Category Sub-Category Detail Notes Category Not es Dermatologic SURGICAL SITE Incision edges a re well aligned and adhered, CFT intact , (less) , edema , (+) pop , (-) , cellulitis , (-) , dehiscence , Drainage is , not present (+) numbness Ophthalmology Referral DIABETES EYE EXAM Diabeti c Retinopathy Screening:: Yes Dressing APPEARANCE Clean, dry, and intact, with dry to moist blood present, no malodor
--- OUTSIDE RECORDS SUMMARY | 2024-07-05 16:11 | XMS_ITS ---
Author Organization [facility] Address [address] [place] [address] Care Team Providers Care Industrial Engineering Name Role Phone Alan Blanchard MD Primary Care Provider Unavaila ble Black, Yue Unavailable [phone] Allergies No Known Allergies REASON FOR VISIT Post-op Medications Medication SIG (Take, Route, Frequency, Duration) Notes Start Date End Date Status Atorvastatin Calcium Active Cephalexin 500 MG 1 capsule Orally Fou r times a day for 10 days 01/09/2023 Not-Taking Omeprazole Active rOPINIRole HCl Activ e Escitalopram Oxalate Active Fenofibrate 160 MG 1 tablet Orally Once a day Active glipiZIDE Active Losartan Potassium 50 MG 1 tablet Orally Once a day Active Metformin & Diet Manage Prod Not-Taking Jardiance 25 MG 1 tablet Orally Once a day Active Feldene 20 MG 1 capsule with food Orally Once a day for 30 day(s) 07/06/2015 Not-Taking Irbesartan Not-Takin g Ibuprofen 800 MG 1 tablet with food o r milk as needed Orally every 6 hrs for 10 days 12/02/2022 Not-Taking Acetaminophen Extra Strength 500 MG 1 tablet as needed Orally every 6 hrs for 14 days 12/02/2022 Not-Taking Gabapentin 300 MG 1 capsule Orally at bedtime for 10 days 12/02/2022 Not-Taking Social History Tobacco Use: Social History Observation [...] No Vital Signs Height 5ft 4in in 03/03/2023 Weight 179 lbs 03/03/2023 BMI 30.72 kg/m2 03/03/2023 Encounters Encounter Location Date Provider Diagnosis [address] [place] [address] 03/03/2023 Yue Tiago 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 ; Pain in left toe(s) M79.675 and Localized edema R60.0 Assessments Encounter Date Diagnosis (ICD Code) Assessment Notes Treatment Notes Treatment Clinical Notes Section Notes 03/03/2023 Lesion of left plantar nerve (ICD-10 - G57.62) 03/03/2023 Pain in left toe(s) (ICD-10 - M79.675) 03/03/2023 Localized edema (ICD-10 - R60.0) Plan Of Treatment Next Appt Details Follow Up: 3 Months, Reason: Progress Notes * Priyanka MOONEY ADOB:1960 (63 yo F)Acc No.[id number]:03/03/2023 PROGRESS NOTES Patient:?Priyanka Mooney Rogelio Provider:?Yue Ordoñez DPM :1960???Age:63 Y???Sex:Female D ate:03/03/2023 Address:[address] [place], [place] [id number] Pcp:Alan Blanchard MD Subjective: * Chief Complaints: * ???Post-op * HPI: ???Post-op:?The patient presents for post-op of?Neuroma excision , Left.?Date of Surgery?:?12/31/2022 ?Current symptoms include?Pt denies fever, chills, nausea, calf pain, SOB, or increased anxiety, Pt states no pain ,mild discomfort when pressure is applied?.? * ROS:?General/Constitutional:?Nausea?denies.?Vomiting?denies.?Hunger Thirst?denies.?Loss appetite?denies.?Chills?denies.?Fatigue?denies.?Fever?denies.?Night Sweats?denies.?Unexplained weight loss?denies.?Ophthalmologic:?Blurred [...] 2. ?no Exercise. ?Marital status: . ?Occupation: [employer]. * Medications:?TakingJardiance 25 MG Tablet 1 tablet [...] Verified] Objective: * Vitals:?Ht: 5ft 4in, Wt: 179 , BMI:30.72, Shoe size: 7, BS: 189. * ???Past Orders: ???Lab:HEMOGLOBIN A1C (GLYCO HEMOGLOBIN) (Order Date - 01/12/2023) (Collection Date - 01/12/2023) ? Value Reference Range ?HEMOGLOBIN A1C (HH) 7.2 * Examination: ???Ophthalmology Referral: ?DIABETES EYE EXAM?Dermatologic: ?SURGICAL SITE?Incision edges are well aligned and adhered, CFT intact , (mild ) , edema , (-) pop , (-) , cellulitis , (-) , dehiscence , Drainage is , not present (+) numbness , no pain on lateral compression, no pain on direct pressure of the interspace.? Assessment: * Assessment: 1.?Lesion of left plantar ne rve - G57.62 (Primary)?2.?Pain in left toe(s) - M79.675?3.?Localized edema - R60.0? Plan: * Treatment: * Procedure Codes:? * Preventive Medicine:? ??Counseling:?Post-op:?I reviewed with the patient the usual surgical post-op course. The patient is to call with any questions/complications, and will follow-up as scheduled, return to accom firm-soled shoe for stability and support, gradually increase activity to tolerance, discussed and reviewed signs and symptoms of DVT, pt to monitor and call with any concerns, Pt to continue to ice and elevate foot to help with post op swelling and pain.? * Follow Up:?3 Months * Images: * Sign off status: Completed true * Provider:?Yue Ordoñez DPM Date:?2022 Generated for Claudia cxo/Sophia/Liliana on:?07/05/2024 04:10 PM EST History and Physical Notes * HPI (History of Present Illness) Category Sub-Category Detail Notes Category Not es Post-op The patient presents for post-op of Neuroma excision , Left Current symptoms include Pt denies fever , chills, nausea, calf pain, SOB, or increased anxiety, Pt states no pain ,mild discomfort when pressure is applied Date of Surgery :: 12/31/2022 Examination Category Sub-Category Detail Notes Category Not es Dermatologic SURGICAL SITE Incision edges a re well aligned and adhered, CFT intact , (mild ) , edema , (-) pop , (-) , cellulitis , (-) , dehiscence , Drainage is , not present (+) numbness , no pain on lateral compression, no pain on direct pressure of the interspace Ophthalmology Referral DIABETES EYE EXAM Diabeti c Retinopathy Screening:: Yes Dressing APPEARANCE
--- OUTSIDE RECORDS SUMMARY | 2024-07-05 16:11 | XMS_ITS ---
Author Organization [facility] [place] Address [address] [place] [address] Care Team Providers Care Acidity Tester Name Role Phone Alan Blanchard MD Primary Care Provider Unavaila ble Black, Yue Unavailable [phone] Allergies No Known Allergies REASON FOR VISIT Foot pain, Skin problem(s) Medications Medication SIG (Take, Route, Frequency, Duration) Notes Start Date End Date Status Fenofibrate 160 MG 1 tablet Orally Once a day Active Jardiance 25 MG 1 tablet Orally Once a day Active Metformin & Diet Manage Prod Not-Taking glipiZIDE Active Irbesartan Not-Takin g Feldene 20 MG 1 capsule with food Orally Once a day for 30 day(s) 07/06/2015 Not-Taking Gabapentin 300 MG 1 capsule Orally at bedtime for 10 days 12/02/2022 Not-Taking Acetaminophen Extra Strength 500 MG 1 tablet as needed Orally every 6 hrs for 14 days 12/02/2022 Not-Taking Ibuprofen 800 MG 1 tablet with food o r milk as needed Orally every 6 hrs for 10 days 12/02/2022 Not-Taking Cephalexin 500 MG 1 capsule Orally Fou r times a day for 10 days 01/09/2023 Not-Taking Losartan Potassium 50 MG 1 tablet Orally Once a day Active Escitalopram Oxalate Active Atorvastatin Calcium Active rOPINIRole HCl Activ e Omeprazole Active Social History Tobacco Use: Social History [...] No Vital Signs Height 5ft 4in in 06/02/2023 Weight 179 lbs 06/02/2023 BMI 30.72 kg/m2 06/02/2023 Encounters Encounter Location Date Provider [facility] [address] [place] [address] 06/02/2023 Yue Ordoñez 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 ; Stucco keratoses L85.1 and Numbness R20.0 Assessments Encounter Date Diagnosis (ICD Code) Assessment Notes Treatment Notes Treatment Clinical Notes Section Notes 06/02/2023 Lesion of left plantar nerve (ICD-10 - G57.62) Response to treatment,Resol paul 06/02/2023 Stucco keratoses (ICD-10 - L85.1) 06/02/2023 Numbness (ICD-10 - R20.0) Plan Of Treatment Next Appt Details Follow Up: prn, Reason: [facility] Progress Notes * Priyanka MOONEY ADOB:1960 (63 yo F)Acc No.[id number]:06/02/2023 Progress Note Patient:?Priyanka Mooeny Provider:?Yue Ordoñez DPM :1960???Age:63 Y???Sex:Female D ate:06/02/2023 Address:[address] [place] [id number] Pcp:Alan Blanchard MD Subjective: * Chief Complaints: * ???Foot painSkin problem(s) * HPI: ???Foot Pain:?Nature:?burning, numbness, sharp.?Location:?Forefoot, LEFT.?Duration:?several years.?Onset:?gradual.?Course:?improved , at 100 %.?Aggrevated:?especially barefoot, standing, walking.?Treatments:?Rest, ice, gabapentin 100 mg helped a little, cortisone injection (7 years ago), surgical excision of neuroma.?Severity/Quality:?moderate, severe.?Skin problems:?Nature:?dryness, bumps.? * ROS:?General/Constitutional:?Nausea?denies.?Vomiting?denies.?Hunger Thirst?denies.?Loss appetite?denies.?Chills?denies.?Fatigue?denies.?Fever?denies.?Night Sweats?denies.?Unexplained weight loss?denies.?Ophthalmologic:?Blurred [...] 3rd interspace 12/31/2022 * Hospitalization/Major Diagno stic Procedure:?[facility] diverticulitis * Family History:?Mother: dece ased, diagnosed [...] 2. ?no Exercise. ?Marital status: . ?Occupation: [employer]. * Medications:?TakingJardiance 25 MG Tablet 1 tablet [...] 179 , BMI:30.72, Shoe size: 7, BS: 201. * ???Past Orders: ???Lab:HEMOGLOBIN A1C (GLYCO HEMOGLOBIN) (Order Date - 01/12/2023) (Collection Date - 01/12/2023) ? Value Reference Range ?HEMOGLOBIN A1C (HH) 7.2 * Examination: ???Ophthalmology Referral: ?DIABETES EYE EXAM?Neuroma Pain: ?PALPATION:?no Pain with direct palpation of the intermetatarsal space, No??Pain with lateral compression of metatarsals, 2nd interspace, negative Ronnie's click, LEFT, scar tissue evident dorsal incision area.?Dermatologic: ?SKIN FINDINGS:?multiple keratoses light brown to off white 1-2 mm in diameter b/l feet.?Neurological: ?SENSORY:?reduced light touch sensation , 5.07 monofilament test performed at plantar aspects of 5 varied sites per foot shows sensation , absent 2,3,4 digits left , Pt relates , anesthesia.?General Examination: ?GENERAL APPEARANCE:?Reveals a pleasant, alert, well nourished, well- developed, well hydrated individual, who demonstrates proper attention to hygiene/body habitus, and is in no acute distress, Pt serves as own historian for office visit today.?ORIENTED:?person, place, and time.? 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 Plan: * Treatment: * Procedure Codes:? * Preventive Medicine:? ??Counseling:?Discussion:?-13: Office or other outpatient visit for the evaluation and management of an established patient, which required a medically appropriate history and/or examination and LOW level of DECISION MAKING for: 1 STABLE ACUTE UNCOMPLICATED PROBLEM, 2 OR MORE MINOR PROBLEMS, OR 1 STABLE CHRONIC PROBLEM, THAT POSE(S) A LOW RISK FOR MORBIDITY/MORTALITY. The visit on the day of the encounter encompassed interpreting the data and educating the patient as to the nature of their condition, treatment options available according to their individual PMH, meds, allergies, and overall health/living conditions, as well as any potential risks or complications that may occur from a failure to adhere to, and participate in, the recommended course of therapy. The discussion included a complete verbal, and/or written explanation of the examination results, any x-rays taken, the proposed diagnosis, and outline of the treatment plan. A schedule for future care needs was also explained. The patient verbalized an understanding of the instructions at this time and agreed to be an active participant in their treatment. If the patient should think of any questions or concerns after the visit, I have encouraged the patient to call the office, Given recent successful results to treatment, The patient wishes to continue with the present treatment plan for their condition for the digital lesion.?Podiatric Counseling:?I explained the etiology of the patients podiatric pathology and the usual treatment plan. The patient was made aware of the adverse risks and sequelae associated with their medical condition(s) and the treatment necessary to avoid those complications. Pt will try gentle scrub to the areas. she defers on curettage or cryosurgery.? * Follow Up:?prn (Reason: [facility]) * Images: * Sign off status: Completed true * Provider:?Yue Ordoñez DPM Date:?2022 Generated for Claudia cox/Sophia/Liliana on:?07/05/2024 04:10 PM EST History and Physical Notes * HPI (History of Present Illness) Category Sub-Category Detail Notes Category Not es Skin problems Nature: dryness, bumps Foot Pain Nature: burning, numbness, sharp Location: Forefoot, LEFT Duration: several years Onset: gradual Course: improved , at 100 % Aggravated: especially barefoot, standing, walking Treatments: Rest, ice, gabapenti n 100 mg helped a little, cortisone injection (7 years ago), surgical excision of neuroma Severity/Quality: moderate, severe Examination Category Sub-Category Detail Notes Category Not es Neuroma Pain PALPATION: no Pain with dir ect palpation of the intermetatarsal space, No Pain with lateral compression of metatarsals, 2nd interspace, negative Ronnie's click, LEFT, scar tissue evident dorsal incision area Neurological SENSORY: reduced light to uch sensation , 5.07 monofilament test performed at plantar aspects of 5 varied sites per foot shows sensation , absent 2,3,4 digits left , Pt relates , anesthesia Dermatologic SKIN FINDINGS: multiple keratos es light brown to off white 1-2 mm in diameter b/l feet General Examination GENERAL APPEARANCE: Reveals a pleasant, alert, well nourished, well-developed, well hydrated individual, who demonstrates proper attention to hygiene/body habitus, and is in no acute distress, Pt serves as own historian for office visit today ORIENTED: person, place, and t yung Ophthalmology Referral DIABETES EYE EXAM Diabetic Retinopa thy Screening:: Yes
--- OUTSIDE RECORDS SUMMARY | 2024-07-05 16:11 | XMS_ITS | Patient Health Record ---
[facility] Organization [facility] Address [address] [place] [address] Care Team Providers Care Central Sterile Tech Name Role Phone Alan Blanchard MD Primary Care Provider Unavaila ble Black, Yue Unavailable [phone] Allergies No Known Allergies Reason For Referral No Information Medications Medication SIG (Take, Route, Frequency, Duration) Notes Start Date End Date Status Fenofibrate 160 MG 1 tablet Orally Once a day Active Feldene 20 MG 1 capsule with food Orally Once a day for 30 day(s) 07/06/2015 Not-Taking Jardiance 25 MG 1 tablet Orally Once a day Active Gabapentin 300 MG 1 capsule Orally at bedtime for 10 days 12/02/2022 Not-Taking Losartan Potassium 50 MG 1 tablet Orally Once a day Active Metformin & Diet Manage Prod Not-Taking glipiZIDE Active Irbesartan Not-Takin g Acetaminophen Extra Strength 500 MG 1 tablet as needed Orally every 6 hrs for 14 days 12/02/2022 Not-Taking Ibuprofen 800 MG 1 tablet with food o r milk as needed Orally every 6 hrs for 10 days 12/02/2022 Not-Taking Cephalexin 500 MG 1 capsule Orally Fou r times a day for 10 days 01/09/2023 Not-Taking Escitalopram Oxalate Active Atorvastatin Calcium Active rOPINIRole HCl Activ e Omeprazole Active Immunizations Vaccine Route Administration Date Status Comme nts Influenza Unknown 04/01/2023 Administered Social History Tobacco Use: Social History Observation [...] Are you an other tobacco user? 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) Active confirmed Response to treatment, Resolved Plan Of Treatment Pending Test Test Name Order Date 95375, J0702- Neuroma/Injection 09/13/19 16 18409, J0702- Neuroma/Injection 10/26/19 16 05714, J0702- Neuroma/Injection 12/04/19 16 53526, J0702- Neuroma/Injection 10/15/19 23 Insurance Providers Payer Name Payer Address Payer Phone Subscriber Number Group Number Insured Name Patient Relationship to Insured Coverage Start Date Coverage End Date [facility] [address] [place] [address] [id number] Priyanka Aguilar Self - patient is the insured Medical (General) History Medical History History ICD Code Hyperlipidemia Diabetic Diverticulosis Hypertension Reflux Numbness Reflux ( GERD) chronic sinusitis Restless leg syndrome Surgical History Surgery Date(Month/Year) colonoscopy Excision of neuroma left 3rd interspace 12/31/2022 Hospitalization History Reason Date(Month/Year) [facility] [place] divert[place]
--- OUTSIDE RECORDS SUMMARY | 2024-07-05 16:11 | XMS_ITS | Patient Health Record ---
Author Organization [facility] Address [address] [place] [address] Care Team Providers Care Asphalt Paving Superintendent Name Role Phone Alan Blanchard MD Primary Care Provider Juan Carlos Alfaro Unavailable [phone] ALLERGIES No Known Allergies REASON FOR REFERRAL No Information MEDICATIONS Medication SIG (Take, Route, Frequency, Duration) Notes Start Date End Date Status Escitalopram Oxalate 10 MG Oral for 90 Active Atorvastatin Calcium 10 MG Oral for 90 Active Lantus 100 UNIT/ML as directed Subcutaneous Active Omeprazole 20 MG 1 capsule Orally Onc e a day Active rOPINIRole HCl 4 MG 1 tablet 1 to 3 hour s before bedtime Orally Once a day Active Losartan Potassium 50 MG Oral for 90 Active IMMUNIZATIONS Vaccine Route Administration Date Status Comme nts Influenza Unknown 03/22/2021 Administered SOCIAL HISTORY Sex Assigned At : Social History Observation Description Sex Assigned At Unknown PROBLEMS Problem Type ICD Code Onset Dates Problem Status W/U Status Risk SNOMED Code Notes Problem Encounter for screening for malignant neoplasm of colon (Z12.11) Active confirmed 887802914 Problem Encounter for screening for malignant neoplasm of rectum (Z12.12) Active confirmed Screening for malignant neoplasm of rectum (537356585) Problem Gastroesophageal reflux disease without esophagitis (K21.9) Active confirmed 241722353 Problem Family history of colon cancer (Z80.0) Active confirmed 275433907 Problem Diverticulosis of colon (K57.30) Active confirmed Diverticulosi s of colon (060621981) PLAN OF TREATMENT Future Test Test Name Order Date COLONOSCOPY 04/23/2016 COLONOSCOPY 12/03/2021 Insurance Providers Payer Name Payer Address Payer Phone Subscriber Number Group Number Insured Name Patient Relationship to Insured Coverage Start Date Coverage End Date [facility] [address] [place], [place] [id number] [phone] [id number] BRIAN MOONEY Self - patient is the insured MEDICAL (GENERAL) HISTORY Medical History History ICD Code GERD--EGD 01/2009--moderate-sized HH--no esophagitis nor Forrest's esophagus Hypertension Denies AK,CVA,Lung disease,renal disease IDDM Diverticulitis---treated wit h IV antibiotics for several days--approx 2010; treated with outpt antibiotics in 07/2021 Anxiety Restless leg syndrome Neg. screening colonoscopy i n 01/2009 except for diverticulosis and internal hemorrhoids Negative colonoscopy in 06/2016 Surgical History Surgery Date(Month/Year)
[2024-07-05 16:25] LABS: Estimated Average Glucose 163 mg/dL; Hemoglobin A1C 191.4918 umol/L; Hemoglobin A1c % 7.3 % (<6.0); Total Hemoglobin (HGBA1C) 3407.6766 umol/L
[2024-07-05 17:05] LABS: Alanine Aminotransferase 24 U/L (0-31); Albumin Level 4.2 g/dL (3.5-5.0); Alkaline Phosphatase 68 U/L (39-117); Anion Gap 8 (12-20); Aspartate Amino Transferase 19 U/L (5-31); Bilirubin Total 0.3 mg/dL (0.0-1.0); Blood Urea Nitrogen 15 mg/dL (9-16); Calcium 8.8 mg/dL (8.4-10.2); Carbon Dioxide 26 mmol/L (22-29); Chloride 111 mmol/L (96-108); Creatinine Urine 100.92 mg/dL; Estimated Glomerular Filt Rate > 60; Glucose Random 76 mg/dL (60-115); Microalbumin Urine < 5.0 mg/L; Potassium 3.8 mmol/L (3.3-5.1); Sodium 141 mmol/L (135-145); Total Protein 6.9 g/dL (6.5-8.0)
== END 2024-07-05 13:49 | disposition home or self-care (01) ==
LOC: HO.HMGCLDS 13:48
PROVIDERS: PCP Internal Medicine; Visit Provider Internal Medicine
DX: E11.9 Type 2 diabetes mellitus without complications (principal)
CPT/HCPCS: 36415; 80053; 82043; 82378; 82570; 83036

== ENCOUNTER 2024-10-19 11:25 | Outpatient (REF) | payer MEDICARE, SELFPAY ==
--- OUTSIDE RECORDS SUMMARY | 2024-10-19 13:06 | XMS_ITS ---
Author [facility] Address [address] [place] [address] Care Team Providers Care Exit Booth Agent Name Role Phone Alan Blanchard MD Primary Care Provider Unavaila ble Black, Yue Unavailable [phone] Allergies No Known Allergies REASON FOR VISIT [...] 06/02/2023 Encounters Encounter Location Date Provider Diagnosis [facility] [facility] [place] [address] 06/02/2023 Yue Ordoñez Lesion of left plantar [...] * Priyanka MOONEY ADOB:1960 (63 yo F)Acc No.[id number]:06/02/2023 Progress Note Patient:?Priyanka Mooney Provider:?Yue Ordoñez DPM :1960???Age:63 Y???Sex:Female D ate:06/02/2023 Address:[address] [place] [id number] Pcp:Alan Blanchard MD Subjective: * Chief Complaints: [...] 3rd interspace 12/31/2022 * Hospitalization/Major Diagno stic Procedure:[place] [place] * Family History:?Mother: dece ased, diagnosed [...] 2. ?no Exercise. ?Marital status: . ?Occupation: [id number]. * Medications:?TakingJardiance 25 MG Tablet 1 tablet [...] 7.2 * Examination: ???Ophthalmology Referral: ?DIABETES EYE EXAM?Diabetic Retinopathy Screening:?Yes?Neuroma Pain: ?PALPATION:?no Pain with direct palpation of [...] Ordoñez DPM Date:?2022 Generated for Claudia cox/Sophia/Liliana on:?10/19/2024 01:05 PM EDT History and Physical Notes * HPI (History [...]
--- OUTSIDE RECORDS SUMMARY | 2024-10-19 13:06 | XMS_ITS | Patient Health Record ---
Author Organization [facility] Address [address] [place] [address] Care Team Providers Care Machine Inspector Name Role Phone Alan Blanchard MD Primary Care Provider Unavaila ble Black, Yue Unavailable [phone] Allergies No Known Allergies Reason For Referral [...] Problem Acquired hammer toe of left foot (57215984075909 03) Other hammer toe(s) (acquired), left foot (M20.42) Active confirmed Problem Type II diabetes mellitus without complication (836272952) Type 2 diabetes mellitus without complications (E11.9) Active confirmed Problem Plantar nerve lesion (350533077) 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) Active confirmed Problem 31308311 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) Active confirmed Response to treatment, Resolved Plan Of Treatment Pending Test Test Name Order Date 27656, J0702- Neuroma/Injection 09/13/19 16 70242, J0702- Neuroma/Injection 10/26/19 16 33818, J0702- Neuroma/Injection 12/04/19 16 15309, J0702- Neuroma/Injection 10/15/19 23 Insurance Providers Payer Name Payer Address Payer Phone Subscriber Number Group Number Insured Name Patient Relationship to Insured Coverage Start Date Coverage End Date [facility] [address] [place] [address] [id number] Priyanka Aguilar Self - patient is the insured Medical (General) History Medical History History ICD Code Hyperlipidemia Diabetic Diverticulosis Hypertension Reflux Numbness Reflux ( GERD) chronic sinusitis Restless leg syndrome Surgical History Surgery Date(Month/Year) colonoscopy Excision of neuroma left 3rd interspace 12/31/2022 [place] Reason [place] [facility] [place]
[2024-10-19 13:32] LABS: MANUAL DIFF FLAG NO
[2024-10-19 13:47] LABS: Basophils Percent Auto 0.7 % (0-2); Eosinophils Absolute Auto 0.1 X10*3/uL (0.0-0.4); Eosinophils Percent Auto 2.1 % (0-4); Hematocrit 40.9 % (37.0-47.0); Hemoglobin 13.3 g/dl (12.0-16.0); Imm Gran Abs Auto 0.02 X10*3/uL (0.00-0.03); Imm Gran Pct Auto 0.4 % (0.0-0.4); Lymphocytes Absolute Auto 1.4 X10*3/uL (1.2-4.9); Mean Corpuscular HGB Conc 32.5 g/dl (31.0-35.0); Mean Corpuscular Hemoglobin 28.9 pg (27.0-33.0); Mean Corpuscular Volume 88.7 fL (80.0-98.0); Mean Platelet Volume 10.7 fL (9.4-12.3); Monocytes Absolute Auto 0.4 X10*3/uL (0.1-1.2); Monocytes Percent Auto 7.1 % (2-11); Neutrophils Absolute Auto 3.7 x10*3/uL (2.0-8.3); Neutrophils Percent Auto 65.7 % (45-73); Platelet Count 217 X10*3/uL (160-400); Red Blood Count 4.61 X10*6/uL (4.20-5.50); Red Cell Distribution Width 13.1 % (11.0-16.0); White Blood Count 5.7 X10*3/uL (4.8-10.8)
[2024-10-19 13:55] LABS: Alanine Aminotransferase 27 U/L (0-31); Albumin Level 4.2 g/dL (3.5-5.0); Alkaline Phosphatase 64 U/L (39-117); Anion Gap 12 (12-20); Aspartate Amino Transferase 24 U/L (5-31); Bilirubin Total 0.7 mg/dL (0.0-1.0); Blood Urea Nitrogen 14 mg/dL (9-16); Calcium 9.4 mg/dL (8.4-10.2); Carbon Dioxide 25 mmol/L (22-29); Chloride 108 mmol/L (96-108); Cholesterol 157 mg/dL (<200); Estimated Glomerular Filt Rate > 60; Glucose Fasting 110 mg/dL (60-99); HDL Cholesterol 41 mg/dL (>40); LDL Cholesterol Calculated 88 mg/dL (<100); Potassium 3.9 mmol/L (3.3-5.1); Sodium 141 mmol/L (135-145); Total Protein 6.8 g/dL (6.5-8.0); Triglycerides 144 mg/dL (<150)
[2024-10-19 13:59] LABS: Estimated Average Glucose 160 mg/dL; Hemoglobin A1C 190.0458 umol/L; Hemoglobin A1c % 7.2 % (<6.0); Total Hemoglobin (HGBA1C) 3471.5112 umol/L
[2024-10-19 14:08] LABS: Creatinine Urine 71.05 mg/dL
== END 2024-10-19 11:26 | disposition home or self-care (01) ==
LOC: HO.HMGCLDS 11:25
PROVIDERS: Visit Provider Internal Medicine
DX: E11.9 Type 2 diabetes mellitus without complications (principal); I10 Essential (primary) hypertension; E78.00 Pure hypercholesterolemia, unspecified
CPT/HCPCS: 36415; 80053; 80061; 82043; 82570; 83036; 85025

== ENCOUNTER 2024-10-21 13:37 | Outpatient (AMB) | payer MEDICARE, SELFPAY ==
[2024-10-21 13:40] VITALS: BP 122/74; PULSE 86; TEMP 36.4; O2SAT 98; BMI 30.6
--- NOTE | 2024-10-21 13:40 | MHC.PC.OV ---
Vital Signs 10/21/24 13:40 Height 5 ft 4 in Weight 80.739 kg BMI 30.6 BP 122/74 Blood Pressure Location Rt brachial Position Sitting Pulse 86 Pulse Source Pulse Oximeter Temp 97.5 F Temp Source Axillary Pulse Oximetry (%) 98 Oxygen Delivery Method Room Air Intake Visit Reasons: Routine Creping Machine Operator Required: No Accompanied by: Self / Same As Patient Allergies No Known Allergies Allergy (Verified 10/21/24 13:40) Medication List - Last Reconciled 10/21/24 by ATUL Spencer atorvastatin 10 mg PO DAILY dulaglutide (Trulicity) mg subcut empagliflozin (Jardiance) 25 mg PO DAILY escitalopram oxalate 10 mg PO BEDTIME fenofibrate 160 mg PO DAILY glipizide 10 mg PO BID losartan 50 mg PO DAILY omeprazole 20 mg PO DAILY ropinirole 2 mg (2 x 1 mg) PO BID semaglutide (Ozempic) 0.25 mg (0.368 mL) subcut QWEEK Tobacco use date assessed: 10/21/24 Fall risk assessment: No Falls in past year Last assessed Fall Risk: 10/21/24 Dental Screening Dental Screen Date: 10/21/24 Did you have a dental visit in the last 12 months?: Yes Did you have a dental problem in the last 6 months where you did not have access to dental care?: No HPI HPI Comments History of Present Illness Details History of Present Illness The patient is a 64-year-old female presenting with medication management concerns, primarily focusing on her diabetes regimen. Her recent HbA1c level is 7.2%, slightly above the target threshold. She manages her condition with Trulicity, glipizide, and Jardiance but is exploring whether a switch to Ozempic could be beneficial. She struggles with high fasting glucose levels, potentially due to night-time dietary habits. Recently, she faced issues with her continuous glucose monitor sensor, necessitating a prescription renewal. The patient also reports concerns about yeast infections linked to Jardiance-induced sugar excretion but manages them with topical treatment. Review of Systems - General: Reports feeling fine as long as medications are taken. - Endocrine: Reports type 2 diabetes mellitus, A1c of 7.2%. - Cardiovascular: Reports essential hypertension. - Gastrointestinal: Reports gastroesophageal reflux disease. - Psychological: Reports generalized anxiety disorder. - Neurological: Reports restless leg syndrome. - Genitourinary: Reports frequent yeast infections associated with Jardiance use. Vital Signs Health Maintenance - HbA1c recently measured at 7.2%. - Discussion on switching diabetes medication from Trulicity to Ozempic for potential cost benefits. - Emphasis on dietary changes, specifically reducing nighttime snacking. Physical Exam Constitutional: Awake and alert, no apparent distress Heart: Regular rate and rhythm, S1S2, no murmurs, no edema Lungs: Clear to auscultation bilaterally, no wheezing Extremities: No calf tenderness, no swelling in legs Skin: Warm and dry Neuro: Alert and oriented x 3 Assessment and Plan 1. Type 2 Diabetes Mellitus The patient, with an HbA1c of 7.2%, is to consider switching from Trulicity to Ozempic, pending cost approval, to aid in glucose management. Continue glipizide and Jardiance as prescribed. Glycemic control focuses on modifying night-time eating habits with sensor prescription updates. 2. Essential Hypertension Controlled. Continue losartan 50 mg daily. Low-sodium diet 3. Hyperlipidemia Encourage lifestyle modifications; maintain current lipid-lowering therapy. Cholesterol at goal 4. Generalized Anxiety Disorder Continue current treatment regimen with no modifications. 5. Restless Leg Syndrome Remain with existing regimen as effective. 6. Gastroesophageal Reflux Disease Current treatment continues, with recommended dietary changes for symptom management. 7. Vulvovaginal candidiasis Likely related to Jardiance use. Would like to continue with therapy. Continue with topical antifungals. Should symptoms worsen, consider alternative diabetes treatments as patient wishes to continue with this at this time [facility] Medical History (Updated 10/21/24 @ 14:03 by ATUL Spencer) Elevated cholesterol Anxiety Restless leg syndrome Hiatal hernia GERD (gastroesophageal reflux disease) Diverticulitis HTN (hypertension) Diabetes Surgical History Hx of foot surgery History of esophagogastroduodenoscopy (EGD) Hx of colonoscopy (~01/17/22) Family History (Updated 10/21/24 @ 13:52 by Adilene Carpenter MA) Mother HTN (hypertension) Father Heart disease Colon cancer Varma Vargas attack Diabetes Brother Mental health disorder Social History Housing: House Are you a primary direct care professional to a significant other at home: No Do you presently have visiting nurse or other home services: No Patient Tobacco Use Status: Former Tobacco user e-Cigarette/Vaping Use: Former Use service: No Current occupational status: retired Cognitive needs: No Hearing needs: No Vision needs: Yes (reading glasses) Questionnaire PHQ-9 Over the last 2 weeks, how often have you been bothered by any of the following problems? 1. Little interest or pleasure in doing things: not at all 2. Feeling down, depressed, or hopeless: not at all 3. Trouble falling or staying asleep, or sleeping too much: not at all 4. Feeling tired or having little energy: not at all 5. Poor appetite or overeating: not at all 6. Feeling bad about yourself - or that you are a failure or have let yourself or your family down: not at all 7. Trouble concentrating on things, such as reading the newspaper or watching television: not at all 8. Moving or speaking so slowly that other people could have noticed. Or the opposite - being so fidgety or restless that you have been moving around a lot more than usual: not at all 9. Thoughts that you would be better off or of hurting yourself in some way: not at all Total score: 0 Source: Developed by Drs. Juan Carlos Rossi, Cindi Bustamante, Juanito Knight and colleagues, with an educational mateus from [employer]. Thrive Questionnaire Date Thrive assessed: 10/21/24 I am a: Patient Within the past 12 months, did the food you bought not last and you didn't have the money to get more?: Never true Within the past 12 months, did you worry whether your food would run out before you got money to buy more?: Never true Do you have trouble paying for medicines?: No Do you have trouble getting transportation to medical appointments?: No Do you have trouble paying your heating and electricity bill?: No Do you have trouble taking care of your child, family member or friend?: No Do you have trouble with day-to-day activities such as bathing, preparing meals, shopping, managing finances, etc.?: No Are you currently unemployed and looking for a job?: No Are you interested in more education?: No THRIVE Score: 0 AUDIT C Alcohol Use Questionnaire (AUDIT-C) 1. How often do you have a drink containing alcohol?: Monthly or less 2. How many drinks containing alcohol do you have on a typical day when you are drinking?: 1 or 2 3. How often do you have six or more drinks on one occasion?: Less than monthly Total Score: 2 ANJUM-7 AMB Questionnaire ANJUM-7 Date ANJUM - 7 assessed: 10/21/24 Feeling nervous, anxious, or on edge: 0 = Not at all Not being able to stop or control worryin = Not at all Worrying too much about different things: 0 = Not at all Trouble relaxin = Not at all Being so restless that it is hard to sit still: 0 = Not at all Becoming easily annoyed or irritable: 0 = Not at all Feeling afraid as if something awful might happen: 0 = Not at all Total ANJUM-7 score (0-4 normal; 5-9 mild; 10-14 moderate; 15-21 severe): 0 Source: Developed by Drs. Juan Carlos Rossi, Cindi Bustamante, Juanito Knight and colleagues, with an educational mateus from [employer]. Physical exam (Primary Care) Vital Signs: Last Vital Signs Temp 97.5 F 10/21/24 13:40 Pulse 86 10/21/24 13:40 BP 122/74 10/21/24 13:40 Pulse Ox 98 10/21/24 13:40 Oxygen Delivery Method Room Air 10/21/24 13:40 BMI result Body Mass Index 30.6 Tobacco/Smoking Status: Tobacco use Status Tobacco use date assessed 10/21/24 10/21/24 13:42 Patient Tobacco Use Status Former Tobacco user 10/21/24 13:42 e-Cigarette/Vaping Use Former Use 10/21/24 13:42 PHQ-9: PHQ-9 Score PHQ-9: Total score 0 10/21/24 14:19 Thrive Assessment: Date of Thrive Assessment Date Thrive assessed 10/21/24 10/21/24 13:42 Coding Level of Care Code Tele New Pt Level 4 (71212) Complex EM visit Add On G2211 Diagnoses Anxiety F41.9 Elevated cholesterol E78.00 GERD (gastroesophageal reflux disease) K21.9 HTN (hypertension) I10 Diabetes E11.9 Assessment & Plan Assessment & Plan (1) Anxiety: Code(s): F41.9 - Anxiety disorder, unspecified Category: Medical Plan: Controlled. Continue current regimen (2) Elevated cholesterol: Code(s): E78.00 - Pure hypercholesterolemia, unspecified Category: Medical Plan: Control, LDL at goal. Continue atorvastatin (3) GERD (gastroesophageal reflux disease): Code(s): K21.9 - Gastro-esophageal reflux disease without esophagitis Category: Medical Plan: Controlled. Continue PPI. Avoid known triggers (4) HTN (hypertension): Code(s): I10 - Essential (primary) hypertension Category: Medical Plan: Stable. Continue losartan (5) Diabetes: Code(s): E11.9 - Type 2 diabetes mellitus without complications Category: Medical Plan: Uncontrolled. Discussed lifestyle modifications and dietary changes for compliance. Trulicity change to Ozempic for monetary reasons. Continue glipizide and Jardiance. Plan Follow-up in 3 months with labs completed prior to visit Orders: Orders Hemoglobin A1c 10 Weeks E11.9 - Type 2 diabetes mellitus without complications Medications: New semaglutide (Ozempic) for 4 weeks 0.25 mg (0.368 mL) subcut QWEEK 3 mL 3RF empagliflozin (Jardiance) 25 mg PO DAILY 90 tabs 1RF ropinirole 2 mg (2 x 1 mg) PO BID 180 tabs 1RF fenofibrate 160 mg PO DAILY 90 tabs 1RF glipizide 10 mg PO BID 180 tabs 1RF Changed From atorvastatin 1 tab PO DAILY To atorvastatin 10 mg PO DAILY 90 tabs 1RF From escitalopram oxalate 1 tab PO BEDTIME To escitalopram oxalate 10 mg PO BEDTIME 90 tabs 1RF From omeprazole 1 cap PO DAILY To omeprazole 20 mg PO DAILY 90 caps 1RF From losartan 1 tab PO DAILY To losartan 50 mg PO DAILY 90 tabs 1RF
--- OUTSIDE RECORDS SUMMARY | 2024-10-21 13:53 | XMS_ITS ---
Author [facility] Address [address] [place] [address] Care Team Providers Care Retail Associate Manager Bilingual Name Role Phone Alan Blanchard MD Primary Care Provider Unavaila ble Black, Yue Unavailable [phone] Allergies No Known Allergies REASON FOR VISIT [...] 06/02/2023 Encounters Encounter Location Date Provider Diagnosis [facility] [place] [address] 06/02/2023 Yue Ordoñez Lesion of left plantar [...] * Priyanka MOONEY ADOB:1960 (63 yo F)Acc No.[id number]:06/02/2023 Progress Note Patient:?Priyanka Mooney Provider:?Yue Ordoñez DPM :1960???Age:63 Y???Sex:Female D ate:06/02/2023 Address:[address] [place] [id number] Pcp:Alan Blanchard MD Subjective: * Chief Complaints: [...] 3rd interspace 12/31/2022 * Hospitalization/Major Diagno stic Procedure:[place] [place] * Family History:?Mother: dece ased, diagnosed [...] 2. ?no Exercise. ?Marital status: . ?Occupation: [employer] * Medications:?TakingJardiance 25 MG Tablet 1 tablet [...] Ordoñez DPM Date:?2022 Generated for Claudia cox/Sophia/Liliana on:?10/21/2024 01:52 PM EDT History and Physical Notes * [...]
--- OUTSIDE RECORDS SUMMARY | 2024-10-21 13:53 | XMS_ITS | Patient Health Record ---
Author [facility] Address [address] [place] [address] Care Team Providers Care Railway Switch Operator Name Role Phone Alan Blanchard MD Primary Care Provider Unavaila ble Black, Yue Unavailable [phone] Allergies No Known Allergies Reason For Referral [...] Problem Acquired hammer toe of left foot (74006262259659 03) Other hammer toe(s) (acquired), left foot (M20.42) Active confirmed Problem Type II diabetes mellitus without complication (571302741) Type 2 diabetes mellitus without complications (E11.9) Active confirmed Problem Plantar nerve lesion (336746727) 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) Active confirmed Problem 41050150 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) Active confirmed Response to treatment, Resolved Plan Of Treatment Pending Test Test Name Order Date 12678, J0702- Neuroma/Injection 09/13/19 16 08177, J0702- Neuroma/Injection 10/26/19 16 31096, J0702- Neuroma/Injection 12/04/19 16 70908, J0702- Neuroma/Injection 10/15/19 23 Insurance Providers Payer Name Payer Address Payer Phone Subscriber Number Group Number Insured Name Patient Relationship to Insured Coverage Start Date Coverage End Date [facility] [address] [place] [address] [id number] Priyanka Aguilar Self - patient is the insured Medical (General) History Medical History History ICD Code Hyperlipidemia Diabetic Diverticulosis Hypertension Reflux Numbness Reflux ( GERD) chronic sinusitis Restless leg syndrome Surgical History Surgery Date(Month/Year) colonoscopy Excision of neuroma left 3rd interspace 12/31/2022 Hospitalization History Reason Date(Month/Year) [facility] [place]
--- OUTSIDE RECORDS SUMMARY | 2024-10-21 13:53 | XMS_ITS | Patient Health Record ---
Author Organization [facility] Address [address] [place] [address] Care Team Providers Care Stone Sandblaster Name Role Phone Alan Blanchard MD Primary Care Provider Juan Carlos Alfaro Unavailable [phone] Allergies No Known Allergies Reason For Referral [...] Potassium 50 MG Oral for 90 Active Immunizations Vaccine Route Administration Date Status Comme nts Influenza Unknown 03/22/2021 Administered Problems Problem Type SNOMED Code ICD Code Onset Dates Problem Status W/U Status Risk Notes Problem 062704389 Encounter for screening for malignant neoplasm of colon (Z12.11) Active confirmed Problem Encounter for screening for malignant neoplasm of rectum (Z12.12) Active confirmed Problem 066326205 Gastroesophageal reflux disease without esophagitis (K21.9) Active confirmed Problem 846992461 Family history o f colon cancer (Z80.0) Active confirmed Problem Diverticulosis of colon (110289241) Diverticulosis of colon (K57.30) Active confirmed Plan Of Treatment Future Test Test Name Order Date COLONOSCOPY 04/23/2016 COLONOSCOPY 12/03/2021 Insurance Providers Payer Name Payer Address Payer Phone Subscriber Number Group Number Insured Name Patient Relationship to Insured Coverage Start Date Coverage End Date [facility] [address] [place] [address] [id number] VINICIOBRIAN Terry Self - patient is the insured Medical (General) History Medical History History ICD Code GERD--EGD 01/2009--moderate-sized HH--no esophagitis nor Forrest's esophagus Hypertension Denies [place],CVA,Lung disease,renal disease IDDM Diverticulitis---treated wit h IV antibiotics for several days--approx 2010; treated with outpt antibiotics in 07/2021 Anxiety Restless leg syndrome Neg. screening colonoscopy i n 01/2009 except for diverticulosis and internal hemorrhoids Negative colonoscopy in 06/2016 Surgical History Surgery Date(Month/Year)
== END 2024-10-21 14:24 | disposition home or self-care (01) ==
LOC: HO.HMCHD 13:37
PROVIDERS: PCP Internal Medicine; Visit Provider Internal Medicine
DX: E11.9 Type 2 diabetes mellitus without complications (principal); F41.9 Anxiety disorder, unspecified; E78.00 Pure hypercholesterolemia, unspecified; K21.9 Gastro-esophageal reflux disease without esophagitis; I10 Essential (primary) hypertension

== ENCOUNTER → 2024-10-21 13:37 | Outpatient (BNVA) | payer MEDICARE, SELFPAY | PROVIDERS: PCP Internal Medicine; Visit Provider Internal Medicine | DX: F41.9 Anxiety disorder, unspecified (principal); E78.00 Pure hypercholesterolemia, unspecified; K21.9 Gastro-esophageal reflux disease without esophagitis; I10 Essential (primary) hypertension; E11.9 Type 2 diabetes mellitus without complications; Z79.84 Long term (current) use of oral hypoglycemic drugs; Z79.899 Other long term (current) drug therapy | CPT/HCPCS: 96127; 99202 ==

== ENCOUNTER → 2024-11-15 08:15 | Outpatient (BNV) | payer MEDICARE, SELFPAY | PROVIDERS: PCP Internal Medicine; Visit Provider Internal Medicine | DX: Z12.31 Encounter for screening mammogram for malignant neoplasm of breast (principal) | CPT/HCPCS: 77063; 77067 ==

== ENCOUNTER 2024-11-15 08:24 | Outpatient (REF) | payer MEDICARE, SELFPAY ==
--- OUTSIDE RECORDS SUMMARY | 2024-11-15 08:45 | XMS_ITS ---
Author Organization [facility] Cowen Address [address] [place] [address] Care Team Providers Care Security Systems Sales Representative Name Role Phone Alan Blanchard MD Primary Care Provider Unavaila ble Black, Yue Unavailable [phone] Allergies No Known Allergies REASON FOR VISIT [...] 06/02/2023 Encounters Encounter Location Date Provider [facility] [place] [address] 06/02/2023 Yue Ordoñez Lesion of left plantar [...] * Priyanka MOONEY ADOB:1960 (63 yo F)Acc No.[id number]:06/02/2023 Progress Note Patient:?Priyanka Mooney Provider:?Yue Ordoñez DPM :1960???Age:63 Y???Sex:Female D ate:06/02/2023 Address:[address] [place] [id number] Pcp:Alan Blanchard MD Subjective: * Chief Complaints: [...] 3rd interspace 12/31/2022 * Hospitalization/Major Diagno stic Procedure:?[facility] [place] divert[place]itis * Family History:?Mother: dece ased, diagnosed [...] 2. ?no Exercise. ?Marital status: . ?Occupation: [employer]. * Medications:?TakingJardiance 25 MG Tablet 1 tablet [...] Ordoñez DPM Date:?2022 Generated for Claudia cox/Sophia/Liliana on:?11/15/2024 08:45 AM EDT History and Physical Notes * HPI [...]
== END 2024-11-15 08:25 | disposition home or self-care (01) ==
LOC: HO.MAMMO 08:24
PROVIDERS: PCP Internal Medicine; Visit Provider Internal Medicine
DX: Z12.31 Encounter for screening mammogram for malignant neoplasm of breast (principal)
CPT/HCPCS: 77063; 77067

== ENCOUNTER 2025-04-17 14:05 | Outpatient (REF) | payer MEDICARE, SELFPAY ==
--- OUTSIDE RECORDS SUMMARY | 2025-04-17 17:44 | XMS_ITS | Patient Health Record ---
Author Organization [facility] Address [address] [place] [address] Care Team Providers Care Hospitality Director Name Role Phone Lo (RETIRED) Alan SAUCEDO Primary Care Provide r Unavailable Juan Carlos Cutler Unavailable [phone] Allergies No Known Allergies Reason For Referral No Information Medications Medication SIG (Take, Route, Frequency, Duration) Notes Start Date End Date Status Escitalopram Oxalate 10 MG Oral; Duration: 90 Active Atorvastatin Calcium 10 MG Oral; Duration: 90 Active Lantus 100 UNIT/ML as directed Subcutaneous Active Omeprazole 20 MG 1 capsule Orally Onc e a day Active rOPINIRole HCl 4 MG 1 tablet 1 to 3 hour s before bedtime Orally Once a day Active Losartan Potassium 50 MG Oral; Duration: 90 Active Immunizations Vaccine Route Administration Date Status Comme nts Influenza Unknown 03/22/2021 Administered Problems Problem Type SNOMED Code ICD Code Onset Dates Problem Status W/U Status Risk Notes Problem Screening for malignant neoplasm of colon (040917710) Encounter for screening for malignant neoplasm of colon (Z12.11) Active confirmed Problem Screening for malignant neoplasm of rectum (596373681) Encounter for screening for malignant neoplasm of rectum (Z12.12) Active confirmed Problem Gastroesophageal reflux disease without esophagitis (617010426) Gastroesophageal reflux disease without esophagitis (K21.9) Active confirmed Problem Family History of Cancer of Colon (Situation) (409774611) Family history of colon cancer (Z80.0) Active confirmed Problem Diverticulosis of colon (039731855) Diverticulosis of colon (K57.30) Active confirmed Plan Of Treatment Future Test Test Name Order Date COLONOSCOPY 04/23/2016 COLONOSCOPY 12/03/2021 Insurance Providers Payer Name Payer Address Payer Phone Subscriber Number Group Number Insured Name Patient Relationship to Insured Coverage Start Date Coverage End Date [facility] [address] [place] [address] [phone] [id number] BRIAN MOONEY Self - patient is the insured Medical (General) History Medical History History ICD Code GERD--EGD 01/2009--moderate-sized HH--no esophagitis nor Forrest's esophagus Hypertension Denies [place],CVA,Lung disease,renal disease IDDM Diverticulitis---treated wit h IV antibiotics for several days--approx 2010; treated with outpt antibiotics in 07/2021 Anxiety Restless leg syndrome Neg. screening colonoscopy i n 01/2009 except for diverticulosis and internal hemorrhoids Negative colonoscopy in 06/2016 Surgical History Surgery Date(Month/Year)
--- OUTSIDE RECORDS SUMMARY | 2025-04-17 17:44 | XMS_ITS | Clinical Summary ---
Author Organization [facility] Address [address] [place] [address] Care Team Providers Care Manufacturing Engineer Assembly Name Role Phone Alan Blanchard MD Primary Care Provider Encounters Date Type Department Care Team Description 02/02/2025 Telephone Obstetrics and Gynecology - [address] [phone] Sofia Barron CNM from Last 3 Months Surgical History Surgery Date Site/Laterality Comments OTHER SURGICAL HISTORY PROCEDURE: DENIES PREVIOUS SURGERY Medical History Medical History Date Comments Anxiety state, unspecified DX:An xiety state, unspecified Diverticulitis 02/2012 DX:Diverticuliti s Family History Medical History Relation Name Comments Hypertension Brother 1 Hyperlipidemia Brother 2 Arthritis Father Colon cancer Father Diabetes Father Stroke Father Arthritis Mother Hypertension Mother Stroke Mother Breast cancer Neg Hx Cancer of Small Bowel Neg Hx Kidney cancer Neg Hx Ovarian cancer Neg Hx Pancreatic cancer Neg Hx Uterine cancer Neg Hx Relation Name Status Comments Brother 1 Alive Brother 2 Brother 3 Alive Brother 4 Alive Daughter 1 Alive Daughter 2 Alive Father Maternal Grandfather Maternal Grandmother Mother Alive Paternal Grandfather Paternal Grandmother Sister Alive Social History Tobacco Use Types Packs/Day Years Used Date Smoking Tobacco: Former Cigarettes Q uit: 01/20/2005 Smokeless Tobacco: Never Alcohol Use Standard Drinks/Week Comments Yes 1.7 (1 standard drink = 0.6 oz p ure alcohol) Comments Unknown Sex and Gender Information Value Date Recorded Sex Assigned at Not on file Legal Sex Female 1:51 PM EST Gender Identity Not on file Sexual Orientation Not on file Obstetrics History Last Filed Vital Signs Vital Sign Reading Time Taken Comments Blood Pressure 126/78 05/26/2023 1:34 PM EST Sitting R Arm Pulse 92 05/26/2023 1:34 PM EST Temperature - - Respiratory Rate - - Oxygen Saturation - - Inhaled Oxygen Concentration - - Weight 81.6 kg (179 lb 12.8 oz) 05/26/2023 1:34 PM EST Height 162.6 cm (5' 4 ) 05/26/2023 1:34 PM EST Body Mass Index 30.86 05/26/2023 1:34 PM EST Plan of Treatment Health Maintenance Due Date Last Done Comments Breast Cancer Screening 1960 Colorectal Cancer Screening: Colonoscopy 1960 DTaP,Tdap,and Td Vaccines (1 - Tdap) 1977 Pneumococcal Vaccine: 50+ Ye ars (1 of 1 - PCV) 01/26/2008 Zoster Vaccines (1 of 2) 01/26/2008 Falls Risk Assessment 07/22/2023 Hepatitis C Screening 07/22/2023 Osteoporosis Screening (Bone Density Screening) 07/22/2023 Social Influencers of Health Screening 07/22/2023 Depression Screening 06/22/2024 COVID-19 Vaccine (1 - 2023-2 5 season) 2025 Influenza Vaccine (#1) 2025 RSV Immunization Adult Patie nts (1 - 1-dose 75+ series) 2033 HIB Vaccines Aged Out No longer eligi ble based on patient's age to complete this topic HPV Vaccines Aged Out No longer eligi ble based on patient's age to complete this topic Hepatitis A Vaccines Aged Out No long er eligible based on patient's age to complete this topic Hepatitis B Vaccines Aged Out No long er eligible based on patient's age to complete this topic IPV Vaccines Aged Out No longer eligi ble based on patient's age to complete this topic MMR Vaccines Aged Out No longer eligi ble based on patient's age to complete this topic Meningococcal ACWY Vaccine Aged Out N o longer eligible based on patient's age to complete this topic Meningococcal B Vaccine Aged Out No l onger eligible based on patient's age to complete this topic RSV Immunization Patients Un lesley 20 months Aged Out No longer eligible b ased on patient's age to complete this topic Varicella Vaccines Aged Out No longer eligible based on patient's age to complete this topic Care Teams Manufacturing Engineer Assembly Relationship Specialty Start Date End Date Alan Blanchard MD [address] [place] [address] Dr Sarika [place] PCP - General 02/26/07
--- OUTSIDE RECORDS SUMMARY | 2025-04-17 17:44 | XMS_ITS | Patient Health Record ---
[facility] Address [address] [place] [address] Care Team Providers Care Programming Manager Name Role Phone Alan Blanchard MD Primary Care Provider Unavaila ble Black, Yue Unavailable [phone] Allergies No Known Allergies Reason For Referral No Information Medications Medication SIG (Take, Route, Frequency, Duration) Notes Start Date End Date Status Fenofibrate 160 MG 1 tablet Orally Once a day Active Feldene 20 MG 1 capsule with food Orally Once a day; Duration: 30 day(s) 07/06/2015 Not-Taking Jardiance 25 MG 1 tablet Orally Once a day Active Gabapentin 300 MG 1 capsule Orally at bedtime; Duration: 10 days 12/02/2022 Not-Taking Losartan Potassium 50 MG 1 tablet Orally Once a day Active Metformin & Diet Manage Prod Not-Taking glipiZIDE Active Irbesartan Not-Takin g Acetaminophen Extra Strength 500 MG 1 tablet as needed Orally every 6 hrs; Duration: 14 days 12/02/2022 Not-Taking Ibuprofen 800 MG 1 tablet with food o r milk as needed Orally every 6 hrs; Duration: 10 days 12/02/2022 Not-Taking Cephalexin 500 MG 1 capsule Orally Fou r times a day; Duration: 10 01/09/2023 Not-Taking Escitalopram Oxalate Active Atorvastatin Calcium [...] Problem Acquired hammer toe of left foot (92690922740160 03) Other hammer toe(s) (acquired), left foot (M20.42) Active confirmed Problem Type II diabetes mellitus without complication (887969121) Type 2 diabetes mellitus without complications (E11.9) Active confirmed Problem Plantar nerve lesion (864995928) 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) Active confirmed Problem Lesion of left plantar nerve (33381261891836 4) 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) Active confirmed Response to treatment, Resolved Plan Of Treatment Pending Test Test Name Order Date 62642, J0702- Neuroma/Injection 09/13/19 16 31781, J0702- Neuroma/Injection 10/26/19 16 91625, J0702- Neuroma/Injection 12/04/19 16 21498, J0702- Neuroma/Injection 10/15/19 23 Insurance Providers Payer Name Payer Address Payer Phone Subscriber Number Group Number Insured Name Patient Relationship to Insured Coverage Start Date Coverage End Date [facility] [address] [place] [address] [id number] Priyanka Aguilar Self - patient is the insured Medical (General) History Medical History History ICD Code Hyperlipidemia Diabetic Diverticulosis Hypertension Reflux Numbness Reflux ( GERD) chronic sinusitis Restless leg syndrome Surgical History Surgery Date(Month/Year) colonoscopy Excision of neuroma left 3rd interspace 12/31/2022 Hospitalization History Reason Date(Month/Year) [facility] [place] divert[place]itis
== END 2025-04-17 14:06 | disposition home or self-care (01) ==
LOC: HO.HMGCLDS 14:05
PROVIDERS: PCP Physician Assistant; Visit Provider Physician Assistant
DX: E11.9 Type 2 diabetes mellitus without complications (principal)
CPT/HCPCS: 36415; 83036

== ENCOUNTER 2025-04-19 13:01 | Outpatient (AMB) | payer MEDICARE, SELFPAY ==
--- NOTE | 2025-04-19 12:46 | MHC.PC.OV ---
Vital Signs 04/19/25 13:05 Height 5 ft 3.82 in Weight 79.379 kg BMI 30.2 BP 108/58 L Blood Pressure Location Lt brachial Position Sitting Respiration 18 Pulse 80 Pulse Source Pulse Oximeter Temp 97.7 F Temp Source Temporal Artery Scan Pulse Oximetry (%) 97 Oxygen Delivery Method Room Air Intake Visit Reasons: Bloodwork Lozenge Maker Helper Required: No Accompanied by: Self / Same As Patient Allergies No Known Allergies Allergy (Verified 04/19/25 12:46) Medication List - Last Reconciled 04/19/25 by ATUL Spencer atorvastatin 10 mg PO DAILY blood-glucose transmitter (Dexcom G6 Transmitter device) As directed Dexcom G6 Sensor (blood-glucose sensor) every 10 days NS empagliflozin (Jardiance) 25 mg PO DAILY escitalopram oxalate 10 mg PO BEDTIME fenofibrate 160 mg PO DAILY glipizide 5 mg PO BID losartan 25 mg PO DAILY omeprazole 20 mg PO DAILY Ozempic (semaglutide) 1 mg (0.75 mL) subcut QWEEK NS pen needle, diabetic (Easy Comfort Pen [place]) Use to inject Ozempic weekly pen needle, diabetic use once weekly for injection NS ropinirole 2 mg (2 x 1 mg) PO BID Tobacco use date assessed: 10/21/24 Dental Screening Dental Screen Date: 10/21/24 HPI HPI Comments History of Present Illness Details 65-year-old female with history of type 2 diabetes, hypertension, GERD, restless legs syndrome, anxiety, hyperlipidemia among others presents to the office today for management of chronic conditions. Type 2 diabetes-no complication. Last eye exam last week with Dr. Baptiste. A1c improved to 6.9%. She has been having episodes of hypoglycemia with glucose levels in the 60s she is symptomatic. Using continuous glucose monitor. She is on glipizide 10 mg twice daily, Jardiance 25 mg daily. Has been working on improving diabetic diet though does still continue eating later at night. Denies any neuropathic symptoms Hypertension-blood pressure 108/58. On losartan 50 mg daily Hyperlipidemia-last LDL 86. On fenofibrate and atorvastatin 10 mg daily Restless legs syndrome-stable on ropinirole Anxiety-managed with escitalopram 10 mg Concerns: None Health maintenance: Due for DEXA scan Last screening colonoscopy 2021 with 5 year follow-up advised. Dr. Cutler Last mammogram 11/13 with 1 year follow-up advised ROS: General: No fevers, malaise, unintentional weight loss HEENT: No blurred vision, diplopia. No sore throat, nasal congestion, rhinorrhea, sinus pain, ear pain Cardiovascular: No chest pain, palpitations, or leg edema Respiratory: No shortness of breath, wheezing, cough GI: No abdominal pain, nausea, vomiting, diarrhea, constipation, melena, hematochezia : No dysuria, hematuria, increased urinary frequency, decreased urinary output MSK: No myalgia, back pain Neuro: No headaches, weakness, paresthesias Skin: No rashes or lesions EXAM: Constitutional - Awake and Alert, No apparent distress Eyes - PERRL Cardiovascular - S1S2, RRR, No edema Respiratory - Normal lung expansion, Normal respiratory effort, No respiratory distress, CTA bilaterally Extremities - no calf tenderness bilaterally, no swelling Skin - Warm/Dry Neurological - Alert & oriented x3 Psychological - Appropriate affect PFSH Medical History (Updated 04/19/25 @ 13:18 by ATUL Spencer) Vitiligo Rosacea Lichenoid keratosis Seborrheic keratoses Elevated cholesterol Anxiety Restless leg syndrome Hiatal hernia GERD (gastroesophageal reflux disease) Diverticulitis HTN (hypertension) Diabetes Surgical History Hx of foot surgery History of esophagogastroduodenoscopy (EGD) Hx of colonoscopy (~01/17/22) Family History (Updated 10/21/24 @ 13:52 by Adilene Carpenter MA) Mother HTN (hypertension) Father Heart disease Colon cancer Varma Vargas attack Diabetes Brother Mental health disorder Social History Housing: House Are you a primary healthcare insurance sales agent to a significant other at home: No Do you presently have visiting nurse or other home services: No Patient Tobacco Use Status: Former Tobacco user e-Cigarette/Vaping Use: Former Use service: No Current occupational status: retired Cognitive needs: No Hearing needs: No Vision needs: Yes (reading glasses) Questionnaire Thrive Questionnaire Date Thrive assessed: 10/21/24 ANJUM-7 AMB Questionnaire ANJUM-7 Date ANJUM - 7 assessed: 10/21/24 Source: Developed by Drs. Juan Carlos Rossi, CindiJuanito Novak and colleagues, with an educational mateus from [employer]. Physical exam (Primary Care) Vital Signs: Last Vital Signs Temp 97.7 F 04/19/25 13:05 Pulse 80 04/19/25 13:05 Resp 18 04/19/25 13:05 BP 108/58 L 04/19/25 13:05 Pulse Ox 97 04/19/25 13:05 Oxygen Delivery Method Room Air 04/19/25 13:05 BMI result Body Mass Index 30.2 Tobacco/Smoking Status: Tobacco use Status Tobacco use date assessed 10/21/24 04/19/25 12:46 Patient Tobacco Use Status Former Tobacco user 04/19/25 12:46 e-Cigarette/Vaping Use Former Use 04/19/25 12:46 Thrive Assessment: Date of Thrive Assessment Date Thrive assessed 10/21/24 04/19/25 12:46 Coding Level of Care Code Est Pt Level 4 (93921) Complex EM visit Add On G2211 Diagnoses Anxiety F41.9 Elevated cholesterol E78.00 GERD (gastroesophageal reflux disease) K21.9 HTN (hypertension) I10 Diabetes E11.9 Assessment & Plan Assessment & Plan (1) Anxiety: Code(s): F41.9 - Anxiety disorder, unspecified Category: Medical Plan: Controlled. Continue current regimen (2) Elevated cholesterol: Code(s): E78.00 - Pure hypercholesterolemia, unspecified Category: Medical Plan: . Lipid panel ordered Control, LDL at goal. Continue atorvastatin (3) GERD (gastroesophageal reflux disease): Code(s): K21.9 - Gastro-esophageal reflux disease without esophagitis Category: Medical Plan: Controlled. Continue PPI. Avoid known triggers (4) HTN (hypertension): Code(s): I10 - Essential (primary) hypertension Category: Medical Plan: Stable but low normal. Lower losartan to 25 mg daily (5) Diabetes: Code(s): E11.9 - Type 2 diabetes mellitus without complications Category: Medical Plan: Improved, now controlled but having episodes of hypoglycemia. Will decrease glipizide to 5 mg twice daily. Continue Jardiance. Discontinue Ozempic, initiate Mounjaro for further management of diabetes as well as for assistance with weight loss as this will further improve diabetes management. Continue with annual eye exams and foot exams. Continue working to improve diabetic diet. Plan Follow-up in 4 months with labs completed prior to visit Orders: Orders Vitamin D 25-OH Total 4 Months E11.9 - Type 2 diabetes mellitus without complications, E55.9 - Vitamin D deficiency, unspecified, E78.00 - Pure hypercholesterolemia, unspecified, I10 - Essential (primary) hypertension Basic Metabolic Panel 4 Months E11.9 - Type 2 diabetes mellitus without complications, E55.9 - Vitamin D deficiency, unspecified, E78.00 - Pure hypercholesterolemia, unspecified, I10 - Essential (primary) hypertension Hemoglobin A1c 4 Months E11.9 - Type 2 diabetes mellitus without complications, E55.9 - Vitamin D deficiency, unspecified, E78.00 - Pure hypercholesterolemia, unspecified, I10 - Essential (primary) hypertension Lipid Panel 4 Months E11.9 - Type 2 diabetes mellitus without complications, E55.9 - Vitamin D deficiency, unspecified, E78.00 - Pure hypercholesterolemia, unspecified, I10 - Essential (primary) hypertension XR DEXA axial skeleton Today E55.9 - Vitamin D deficiency, unspecified, M89.8X9 - Other specified disorders of bone, unspecified site, Z78.0 - Asymptomatic menopausal state Medications: New glipizide 5 mg PO BID 180 tabs 1RF blood-glucose transmitter (Dexcom G6 Transmitter device) As directed 1 ea 0RF E11.9 - Type 2 diabetes mellitus without complications losartan 25 mg PO DAILY 90 tabs 1RF Discontinued glipizide Discontinued Reason: Doctor's Order 10 mg PO BID 180 tabs 1RF losartan Discontinued Reason: Doctor's Order 50 mg PO DAILY 90 tabs 1RF
[2025-04-19 13:05] VITALS: BP 108/58; PULSE 80; RESP 18; TEMP 36.5; O2SAT 97; BMI 30.2
--- OUTSIDE RECORDS SUMMARY | 2025-04-19 16:30 | XMS_ITS | Clinical Summary ---
Author Organization [facility] Address [address] [place] [address] Care Team Providers Care Harpooner Name Role Phone Alan Blanchard MD Primary Care Provider [phone] Encounters Date Type Department Care Team Description 02/02/2025 Telephone Obstetrics and Gynecology - [address] [phone] Sofia Barron CNM from Last 3 Months [...] age to complete this topic Care Teams Harpooner Relationship Specialty Start Date End Date Alan Blanchard MD [address] [place] [address] Dr Sarika [place] PCP - General 02/26/07
--- OUTSIDE RECORDS SUMMARY | 2025-04-19 16:31 | XMS_ITS | Patient Health Record ---
Author Organization [facility] Address [address] [place] [address] Care Team Providers Care Adobe Flex Developer Name Role Phone Lo (RETIRED) Alan SAUCEDO Primary Care Provide r Unavailable Juan Carlos Cutler Unavailable [phone] Allergies No Known Allergies Reason For Referral [...] Problem Screening for malignant neoplasm of colon (888520741) Encounter for screening for malignant neoplasm of colon (Z12.11) Active confirmed Problem Screening for malignant neoplasm of rectum (956287639) Encounter for screening for malignant neoplasm of rectum (Z12.12) Active confirmed Problem Gastroesophageal reflux disease without esophagitis (206908955) Gastroesophageal reflux disease without esophagitis (K21.9) Active confirmed Problem Family History of Cancer of Colon (Situation) (460212014) Family history of colon cancer (Z80.0) Active confirmed Problem Diverticulosis of colon (644295782) Diverticulosis of colon (K57.30) Active confirmed Plan Of Treatment Future Test Test Name Order Date COLONOSCOPY 04/23/2016 COLONOSCOPY 12/03/2021 Insurance Providers Payer Name Payer Address Payer Phone Subscriber Number Group Number Insured Name Patient Relationship to Insured Coverage Start Date Coverage End Date [facility] [address] [place] [address] [id number] BRIAN MOONEY Self - patient is the insured Medical (General) History Medical History History ICD Code GERD--EGD 01/2009--moderate-sized HH--no esophagitis nor Forrest's esophagus Hypertension Denies [place],CVA,Lung disease,renal disease IDDM Diverticulitis---treated wit h IV antibiotics for several days--approx 2010; treated with outpt antibiotics in 07/2021 Anxiety Restless leg syndrome Neg. screening colonoscopy i n 01/2009 except for diverticulosis and internal hemorrhoids Negative colonoscopy in 06/2016 Surgical History Surgery Date(Month/Year)
--- OUTSIDE RECORDS SUMMARY | 2025-04-19 16:31 | XMS_ITS | Patient Health Record ---
[facility] Address [address] [place] [address] Care Team Providers Care Assistant Professor Of German Name Role Phone Alan Blanchard MD Primary Care Provider Unavaila ble Black, Yue Unavailable [phone] Allergies No Known Allergies Reason For Referral [...] Problem Acquired hammer toe of left foot (45241388026092 03) Other hammer toe(s) (acquired), left foot (M20.42) Active confirmed Problem Type II diabetes mellitus without complication (623327544) Type 2 diabetes mellitus without complications (E11.9) Active confirmed Problem Plantar nerve lesion (460689061) 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) Active confirmed Problem Lesion of left plantar nerve (87187836141713 4) 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) Active confirmed Response to treatment, Resolved Plan Of Treatment Pending Test Test Name Order Date 84054, J0702- Neuroma/Injection 09/13/19 16 80319, J0702- Neuroma/Injection 10/26/19 16 68384, J0702- Neuroma/Injection 12/04/19 16 58761, J0702- Neuroma/Injection 10/15/19 23 Insurance Providers Payer Name Payer Address Payer Phone Subscriber Number Group Number Insured Name Patient Relationship to Insured Coverage Start Date Coverage End Date [facility] [employer] [address] [place] [address] [id number] Priyanka Aguilar Self - patient is the insured Medical (General) History Medical History History ICD Code Hyperlipidemia Diabetic Diverticulosis Hypertension Reflux Numbness Reflux ( GERD) chronic sinusitis Restless leg syndrome Surgical History Surgery Date(Month/Year) colonoscopy Excision of neuroma left 3rd interspace 12/31/2022 Hospitalization History Reason Date(Month/Year) [facility] [place] diverticulitis
== END 2025-04-19 13:32 | disposition home or self-care (01) ==
LOC: HO.HMCHD 13:01
PROVIDERS: PCP Internal Medicine; Visit Provider Physician Assistant
DX: F41.9 Anxiety disorder, unspecified (principal); E78.00 Pure hypercholesterolemia, unspecified; K21.9 Gastro-esophageal reflux disease without esophagitis; I10 Essential (primary) hypertension; E11.9 Type 2 diabetes mellitus without complications

== ENCOUNTER → 2025-04-19 13:01 | Outpatient (BNVA) | payer MEDICARE, SELFPAY | PROVIDERS: PCP Internal Medicine; Visit Provider Physician Assistant | DX: K21.9 Gastro-esophageal reflux disease without esophagitis (principal); I10 Essential (primary) hypertension; E11.9 Type 2 diabetes mellitus without complications; F41.9 Anxiety disorder, unspecified; E78.00 Pure hypercholesterolemia, unspecified | CPT/HCPCS: 99212 ==